=== PATIENT | female | born 1950 | race Caucasian/White ===

== ENCOUNTER 2019-12-14 17:14 | Observation (INO) ==
[2019-12-14] MEDS ORDERED: Nitroglycerin 0.4 MG TAB.SUBL SL PRN (17:34)
[2019-12-14] MEDS ORDERED: Aspirin 81 MG TAB.CHEW PO ONE (17:34)
[2019-12-14 18:41] LABS: Basophils % 0.5 %; Eosinophils # 0.2 K/mcL (0.0-0.6); Eosinophils % 2.4 %; Hematocrit 36.7 % (35.3-44.9); Hemoglobin 11.6 g/dL (11.5-15.4); Immature Granulocytes % 0.3 % (0-4); Lymphocytes # 1.3 K/mcL (0.6-4.6); Lymphocytes % 16.8 %; Mean Corpuscular HGB Conc 31.6 g/dL (31.6-35.5); Mean Corpuscular Hemoglobin 28.4 pg (28.0-33.3); Mean Corpuscular Volume 89.7 fL (83.0-100.0); Mean Platelet Volume 11.8 fL (9.4-12.4); Monocytes # 0.9 K/mcL (0.0-1.3); Monocytes % 11.8 %; Neutrophils # 5.4 K/mcL (1.6-8.9); Platelet Count 215 K/mcL (140-400); Red Blood Count 4.09 M/mcL (3.82-4.97); Red Cell Distribution Width 13.8 % (11.5-14.5); Segmented Neutrophils % 68.2 %; White Blood Count 7.9 K/mcL (4.3-11.1)
[2019-12-14 19:39] LABS: BUN/Creatinine Ratio 15 (6-26); Blood Urea Nitrogen 20 mg/dL (8-23); Calcium 9.2 mg/dL (8.6-10.3); Carbon Dioxide 17 mEq/L (23-29); Chloride 103 mEq/L (98-107); Glucose 92 mg/dL (70-105); Osmolality,Calculated 280 (280-300); Potassium 4.1 mEq/L (3.5-5.1); Sodium 134 mEq/L (136-145); Troponin I < 0.03 ng/mL (< 0.04); eGFR For African Americans 47 (> 60); eGFR For Non-African Americans 39 (> 60)
[2019-12-14] MEDS ORDERED: ALPRAZolam 0.5 MG TABLET PO ONE (19:55)
[2019-12-14] MEDS ORDERED: Mirtazapine 15 MG TABLET PO ONE (19:56)
[2019-12-14] MEDS ORDERED: *HR* HYDROcodone/Acet 5/325 mg TABLET PO ONE (19:56)
[2019-12-14] MEDS ORDERED: Metoprolol 100 MG TABLET PO ONE (19:56)
[2019-12-14] MEDS ORDERED: Naloxone 0.4 MG/ML INJ IVP PRN (22:05)
[2019-12-14] MEDS ORDERED: ALPRAZolam 0.5 MG TABLET PO PRN (23:09)
[2019-12-14] MEDS ORDERED: *HR* OxyCODONE Immed Rel 5 MG TABLET PO PRN (23:23)
[2019-12-14 23:26] LABS: Bilirubin,Urine Negative (Negative); Blood,Urine Negative (Negative); Clarity,Urine Clear (Clear); Color,Urine Colorless (Yellow); Glucose,Urine (UA) Normal (Normal); Ketones,Urine Negative (Negative); Leukocyte Esterase,Urine Negative (Negative); Nitrite,Urine Negative (Negative); Protein,Urine Negative (Neg-Trace); Specific Gravity,Urine 1.006 (1.010-1.025); Urobilinogen,Urine Normal (Normal)
[2019-12-15] MEDS: *HR* HYDROcodone/Acet 5/325 mg TABLET PO PRN ×2 (00:08→13:26)
[2019-12-15] MEDS ORDERED: *HR* Heparin 5,000 UNIT/ML VIAL SQ SCH (06:00)
[2019-12-15 06:02] LABS: Hemoglobin 11.1 g/dL (11.5-15.4); Mean Corpuscular HGB Conc 31.7 g/dL (31.6-35.5); Mean Corpuscular Hemoglobin 28.7 pg (28.0-33.3); Mean Corpuscular Volume 90.4 fL (83.0-100.0); Mean Platelet Volume 11.9 fL (9.4-12.4); Platelet Count 197 K/mcL (140-400); Red Blood Count 3.87 M/mcL (3.82-4.97); Red Cell Distribution Width 14.1 % (11.5-14.5); White Blood Count 5.7 K/mcL (4.3-11.1)
[2019-12-15 06:20] LABS: Calcium 8.8 mg/dL (8.6-10.3); Magnesium 1.7 mg/dL (1.6-2.6); Phosphorous 4.7 mg/dL (2.7-4.5); Potassium 4.2 mEq/L (3.5-5.1)
[2019-12-15] MEDS ORDERED: Regadenoson 0.4 MG/5 ML SYRINGE IVP ONE (06:37)
[2019-12-15] MEDS ORDERED: *HR* OxyCODONE Immed Rel 5 MG TABLET PO SCH (09:00)
[2019-12-15] MEDS ORDERED: Aspirin Enteric Coated 81 MG Tablet PO SCH (09:00)
[2019-12-15] MEDS ORDERED: amLODIPine 5 MG TABLET PO SCH (09:00)
[2019-12-15 12:42] VITALS: BP 144/82
[2019-12-15] MEDS ORDERED: FLU Vac QV 20-21 (6Month+)/PF 0.5 ML SYRINGE IM ONE (14:56)
== END 2019-12-15 16:15 | disposition home or self-care (01) ==
LOC: EMEROOARM 17:14 → 3BNU 17:14
PROVIDERS: ADMIT Family Medicine; ATTEND Family Medicine

== ENCOUNTER 2020-07-05 15:45 | Observation (INO) ==
[2020-07-05 18:15] LABS: Basophils % 0.4 %; Eosinophils # 0.2 K/mcL (0.0-0.6); Eosinophils % 2.3 %; Hematocrit 37.9 % (35.3-44.9); Hemoglobin 12.4 g/dL (11.5-15.4); Immature Granulocytes % 0.5 % (0-4); Lymphocytes # 1.4 K/mcL (0.6-4.6); Lymphocytes % 18.7 %; Mean Corpuscular HGB Conc 32.7 g/dL (31.6-35.5); Mean Corpuscular Hemoglobin 29.2 pg (28.0-33.3); Mean Corpuscular Volume 89.2 fL (83.0-100.0); Mean Platelet Volume 11.4 fL (9.4-12.4); Monocytes # 0.8 K/mcL (0.0-1.3); Monocytes % 10.6 %; Neutrophils # 4.9 K/mcL (1.6-8.9); Platelet Count 195 K/mcL (140-400); Red Blood Count 4.25 M/mcL (3.82-4.97); Red Cell Distribution Width 12.1 % (11.5-14.5); Segmented Neutrophils % 67.5 %; White Blood Count 7.3 K/mcL (4.3-11.1)
[2020-07-05 18:23] LABS: INR 1.1; Prothrombin Time 12.8 Seconds (9.4-12.1)
[2020-07-05 18:26] LABS: Activated Partial Thrombo Time 23.6 Seconds (26.0-36.0)
[2020-07-05 19:07] LABS: Alanine Aminotransferase 9 Units/L (7-52); Albumin 3.9 g/dL (3.5-5.7); Albumin/Globulin Ratio 1.1 (1.1-2.2); Alkaline Phosphatase 84 Units/L (34-104); Aspartate Amino Transferase 14 Units/L (13-39); BUN/Creatinine Ratio 12 (6-26); Bilirubin,Direct 0.1 mg/dL (0.0-0.2); Bilirubin,Indirect 0.3 mg/dL (0.0-1.0); Bilirubin,Total 0.4 mg/dL (0.3-1.0); Blood Urea Nitrogen 17 mg/dL (8-23); Calcium 8.9 mg/dL (8.6-10.3); Carbon Dioxide 24 mEq/L (23-29); Chloride 99 mEq/L (98-107); Creatine Kinase 33 Units/L (30-223); Ethanol < 10 mg/dL (Less than 10); Globulin 3.6 g/dL (2.4-3.5); Glucose 94 mg/dL (70-105); Osmolality,Calculated 275 (280-300); Potassium 3.7 mEq/L (3.5-5.1); Sodium 132 mEq/L (136-145); Total Protein 7.5 g/dL (6.4-8.9); Troponin I < 0.03 ng/mL (< 0.04); eGFR For African Americans 45 (> 60); eGFR For Non-African Americans 37 (> 60)
[2020-07-05 19:17] LABS: Thyroid Stimulating Hormone 0.584 mcIU/mL (0.340-5.600)
[2020-07-05 19:24] LABS: Bacteria,Urine Few per hpf (None-Few); Bilirubin,Urine Negative (Negative); Blood,Urine Negative (Negative); Calcium Oxalate Crystals,Urine Present; Clarity,Urine Turbid (Clear); Color,Urine Light-Yellow (Yellow); Glucose,Urine (UA) Normal (Normal); Ketones,Urine Negative (Negative); Leukocyte Esterase,Urine Large (Negative); Mucus,Urine Few per lpf (None-Few); Nitrite,Urine Negative (Negative); Protein,Urine Trace mg/dL (Neg-Trace); RBC,Urine 0-3 per hpf (0-3); Specific Gravity,Urine 1.013 (1.010-1.025); Squamous Epithelial Cell,Urine Moderate per hpf (None-Few); Urobilinogen,Urine Normal (Normal); WBC,Urine 30-50 per hpf (0-3)
[2020-07-05 19:48] LABS: Amphetamine Screen,Urine Negative ng/mL (Cutoff=1000); Barbiturate Screen,Urine Negative ng/mL (Cutoff=200); Benzodiazepines Screen,Urine Negative ng/mL (Cutoff=200); Cannabinoid Screen,Urine Negative ng/mL (Cutoff = 50); Cocaine Screen,Urine Negative ng/mL (Cutoff= 300); Opiate Screen,Urine Positive ng/mL (Cutoff=300); Phencyclidine Screen,Urine Negative ng/mL (Cutoff=25)
[2020-07-05] MEDS ORDERED: cefTRIAXone 1,000 MG in Water for inj. (sterile) 10 ML IVP ONE (20:09)
[2020-07-05] MEDS ORDERED: Ondansetron 4 MG/2 ML VIAL IVP PRN (21:37)
[2020-07-05] MEDS ORDERED: Naloxone 0.4 MG/ML INJ IVP PRN (21:37)
[2020-07-05] MEDS ORDERED: Melatonin 3 MG TABLET PO PRN (21:37)
[2020-07-06] MEDS: ALPRAZolam 0.5 MG TABLET PO PRN ×2 (00:43→13:22)
[2020-07-06] MEDS: Acetaminophen 325 MG TABLET PO PRN ×3 (00:45→19:47)
[2020-07-06 02:22] LABS: Basophils % 0.7 %; Eosinophils # 0.2 K/mcL (0.0-0.6); Eosinophils % 3.1 %; Hematocrit 39.8 % (35.3-44.9); Hemoglobin 12.5 g/dL (11.5-15.4); Immature Granulocytes % 0.3 % (0-4); Lymphocytes # 1.3 K/mcL (0.6-4.6); Lymphocytes % 22.3 %; Mean Corpuscular HGB Conc 31.4 g/dL (31.6-35.5); Mean Corpuscular Hemoglobin 28.9 pg (28.0-33.3); Mean Corpuscular Volume 91.9 fL (83.0-100.0); Mean Platelet Volume 11.1 fL (9.4-12.4); Monocytes # 0.8 K/mcL (0.0-1.3); Monocytes % 12.9 %; Neutrophils # 3.6 K/mcL (1.6-8.9); Platelet Count 160 K/mcL (140-400); Red Blood Count 4.33 M/mcL (3.82-4.97); Red Cell Distribution Width 12.1 % (11.5-14.5); Segmented Neutrophils % 60.7 %; White Blood Count 5.9 K/mcL (4.3-11.1)
[2020-07-06 02:40] LABS: Albumin 3.7 g/dL (3.5-5.7); Bilirubin,Total 0.4 mg/dL (0.3-1.0); Calcium 8.7 mg/dL (8.6-10.3); Globulin 3.6 g/dL (2.4-3.5); Magnesium 1.7 mg/dL (1.6-2.6); Phosphorous 3.3 mg/dL (2.7-4.5); Potassium 3.2 mEq/L (3.5-5.1); Total Protein 7.3 g/dL (6.4-8.9)
[2020-07-06] MEDS: *HR* Heparin 5,000 UNIT/ML VIAL SQ SCH ×2 (05:16→17:48)
[2020-07-06] MEDS ORDERED: cefTRIAXone 1,000 MG in Water for inj. (sterile) 10 ML IVP SCH (09:00)
[2020-07-06] MEDS: ALPRAZolam 0.25 MG TABLET PO PRN (19:47)
[2020-07-07 01:56] LABS: Basophils % 0.5 %; Eosinophils # 0.3 K/mcL (0.0-0.6); Eosinophils % 3.8 %; Hematocrit 40.7 % (35.3-44.9); Hemoglobin 13.1 g/dL (11.5-15.4); Immature Granulocytes % 0.4 % (0-4); Lymphocytes # 2.3 K/mcL (0.6-4.6); Lymphocytes % 31.1 %; Mean Corpuscular HGB Conc 32.2 g/dL (31.6-35.5); Mean Corpuscular Hemoglobin 29.6 pg (28.0-33.3); Mean Corpuscular Volume 91.9 fL (83.0-100.0); Mean Platelet Volume 11.3 fL (9.4-12.4); Monocytes % 13.4 %; Neutrophils # 3.7 K/mcL (1.6-8.9); Platelet Count 186 K/mcL (140-400); Red Blood Count 4.43 M/mcL (3.82-4.97); Red Cell Distribution Width 12.3 % (11.5-14.5); Segmented Neutrophils % 50.8 %; White Blood Count 7.3 K/mcL (4.3-11.1)
[2020-07-07 02:28] LABS: Calcium 9.1 mg/dL (8.6-10.3); Potassium 4.1 mEq/L (3.5-5.1)
[2020-07-07] MEDS: *HR* Heparin 5,000 UNIT/ML VIAL SQ SCH (05:59)
[2020-07-07] MEDS: Cefepime HCl 2,000 MG in 0.9 % Sodium Chloride Mini Bag 100 ML IVPB SCH ×2 (08:04→10:20)
[2020-07-07] MEDS: Acetaminophen 325 MG TABLET PO PRN (08:08)
[2020-07-07] MEDS ORDERED: amLODIPine 5 MG TABLET PO SCH (13:00)
[2020-07-07] MEDS: ALPRAZolam 0.25 MG TABLET PO PRN (13:40)
[2020-07-07] MEDS ORDERED: Fosfomycin Tromethamine 3 GM Packet PO ONE (13:45)
[2020-07-07] MEDS ORDERED: Metoprolol 100 MG TABLET PO SCH (15:00)
[2020-07-07 15:31] VITALS: BP 142/84
[2020-07-07] MEDS ORDERED: Mirtazapine 15 MG TABLET PO SCH (21:00)
[2020-07-07] MEDS ORDERED: Gabapentin 300 MG CAPSULE PO SCH (21:00)
[2020-07-08] MEDS ORDERED: Magnesium Oxide 400 MG TABLET PO SCH (09:00)
[2020-07-08] MEDS ORDERED: Cyanocobalamin (B-12) 1,000 MCG TABLET PO SCH (09:00)
== END 2020-07-07 16:30 | disposition home or self-care (01) ==
LOC: EMEROOARM 15:45 → 2ANU 15:45 → SUATTDRO 21:49 → 2ANU 22:32
PROVIDERS: ADMIT Internal Medicine; ATTEND Internal Medicine

== ENCOUNTER 2020-08-12 18:31 | Inpatient (IN) ==
[2020-08-12] MEDS ORDERED: Ondansetron 4 MG/2 ML VIAL IVP ONE (19:35)
[2020-08-12] MEDS ORDERED: *HR* FentaNYL (PF) 100 MCG/2 ML VIAL IVP ONE (19:36)
[2020-08-13] MEDS ORDERED: *HR* HYDROmorphone (PF) 1 MG/ML SYRINGE IVP ONE (02:03)
[2020-08-13 02:06] LABS: Basophils % 0.2 %; Eosinophils % 0.1 %; Hematocrit 36.6 % (35.3-44.9); Hemoglobin 12.3 g/dL (11.5-15.4); Immature Granulocytes % 0.5 % (0-4); Lymphocytes # 1.3 K/mcL (0.6-4.6); Lymphocytes % 8.8 %; Mean Corpuscular HGB Conc 33.6 g/dL (31.6-35.5); Mean Corpuscular Hemoglobin 29.8 pg (28.0-33.3); Mean Corpuscular Volume 88.6 fL (83.0-100.0); Mean Platelet Volume 11.2 fL (9.4-12.4); Monocytes # 1.2 K/mcL (0.0-1.3); Monocytes % 7.9 %; Neutrophils # 12.1 K/mcL (1.6-8.9); Platelet Count 221 K/mcL (140-400); Red Blood Count 4.13 M/mcL (3.82-4.97); Red Cell Distribution Width 12.4 % (11.5-14.5); Segmented Neutrophils % 82.5 %; White Blood Count 14.6 K/mcL (4.3-11.1)
[2020-08-13 02:16] LABS: INR 1.2; Prothrombin Time 13.5 Seconds (9.4-12.1)
[2020-08-13] MEDS ORDERED: Naloxone 0.4 MG/ML INJ IVP PRN ×2 (02:16→16:39)
[2020-08-13] MEDS ORDERED: Acetaminophen 325 MG TABLET PO PRN ×2 (02:16→16:39)
[2020-08-13 02:18] LABS: Activated Partial Thrombo Time 24.3 Seconds (26.0-36.0)
[2020-08-13] MEDS: tiZANidine 4 MG TABLET PO SCH ×3 (02:21→21:22)
[2020-08-13] MEDS ORDERED: Prochlorperazine 10 MG/2 ML VIAL IVP PRN ×2 (02:22→16:39)
[2020-08-13 02:28] LABS: BUN/Creatinine Ratio 12 (6-26); Blood Urea Nitrogen 14 mg/dL (8-23); Calcium 8.9 mg/dL (8.6-10.3); Carbon Dioxide 19 mEq/L (23-29); Chloride 98 mEq/L (98-107); Chol/HDL Ratio 5.1 (0-4.9); Cholesterol 175 mg/dL (< 200); Glucose 135 mg/dL (70-105); HDL Cholesterol 34 mg/dL (40-59); LDL Cholesterol,Calculated 117 mg/dL (< 100); Magnesium 1.5 mg/dL (1.6-2.6); Osmolality,Calculated 269 (280-300); Potassium 3.9 mEq/L (3.5-5.1); Sodium 128 mEq/L (136-145); Triglycerides 121 mg/dL (< 150); Troponin I < 0.03 ng/mL (< 0.04); eGFR For African Americans 53 (> 60); eGFR For Non-African Americans 44 (> 60)
[2020-08-13 02:39] LABS: Thyroid Stimulating Hormone 0.038 mcIU/mL (0.340-5.600)
[2020-08-13 02:52] LABS: Vitamin B12 > 1500 pg/mL (250-1100)
[2020-08-13] MEDS ORDERED: Magnesium Oxide 400 MG TABLET PO ONE (03:39)
[2020-08-13] MEDS ORDERED: 0.9 % Sodium Chloride 1,000 ML IVC SCH ×2 (03:45→07:53)
[2020-08-13] MEDS ORDERED: *HR* Dextrose 50 % in Water (Vial) 50 ML VIAL IVP PRN ×2 (04:17→16:39)
[2020-08-13] MEDS ORDERED: D5% in Water 1,000 ML IVC PRN ×2 (04:17→16:39)
[2020-08-13] MEDS ORDERED: Dextrose Gel 15 GM/37.5 ML TUBE PO PRN ×4 (04:17→16:39)
[2020-08-13] MEDS: Insulin LISPRO 300 UNITS/3 ML VIAL SUBQ SCH ×3 (07:27→18:33)
[2020-08-13] MEDS ORDERED: *HR* FentaNYL (PF) 100 MCG/2 ML VIAL IVP PRN ×2 (08:35→16:39)
[2020-08-13] MEDS ORDERED: *HR* HYDROcodone/Acet 5/325 mg TABLET PO PRN (08:55)
[2020-08-13] MEDS ORDERED: Aspirin Enteric Coated 81 MG Tablet PO SCH (09:00)
[2020-08-13 09:14] LABS: Estimated Average Glucose 120 mg/dl; Hemoglobin A1C 5.8 %
[2020-08-13 09:18] LABS: Calcium 8.6 mg/dL (8.6-10.3); Potassium 4.2 mEq/L (3.5-5.1)
[2020-08-13] MEDS ORDERED: ceFAZolin 2,000 MG in Water for inj. (sterile) 20 ML IVP ONE (09:53)
[2020-08-13 10:01] LABS: Hematocrit 33.1 % (35.3-44.9); Mean Corpuscular HGB Conc 32.3 g/dL (31.6-35.5); Mean Corpuscular Hemoglobin 29.2 pg (28.0-33.3); Mean Corpuscular Volume 90.2 fL (83.0-100.0); Mean Platelet Volume 11.9 fL (9.4-12.4); Platelet Count 186 K/mcL (140-400); Red Blood Count 3.67 M/mcL (3.82-4.97); Red Cell Distribution Width 12.5 % (11.5-14.5); White Blood Count 10.7 K/mcL (4.3-11.1)
[2020-08-13 10:02] LABS: Hemoglobin 10.7 g/dL (11.5-15.4)
[2020-08-13] MEDS ORDERED: Lidocaine -MPF 2% 2 ML VIAL ONE (12:30)
[2020-08-13] MEDS ORDERED: Lidocaine -MPF 4% 5 ML AMPUL ONE (12:30)
[2020-08-13] MEDS ORDERED: *HR* Rocuronium Bromide 50 MG/5 ML VIAL ONE (12:30)
[2020-08-13] MEDS ORDERED: *HR* Propofol 200 MG/20 ML VIAL IVP ONE (12:30)
[2020-08-13] MEDS ORDERED: *HR* FentaNYL (PF) 100 MCG/2 ML VIAL ONE (12:30)
[2020-08-13] MEDS ORDERED: Ondansetron 4 MG/2 ML VIAL ONE (12:30)
[2020-08-13] MEDS ORDERED: *HR* Succinylcholine 200 MG/10 ML VIAL IVP ONE (12:30)
[2020-08-13] MEDS ORDERED: Albumin Human 5% 0 GM/0 ML IV.SOLN ONE (12:50)
[2020-08-13] MEDS ORDERED: EPHEDrine 50 MG/ML VIAL ONE (13:01)
[2020-08-13] MEDS ORDERED: Scopolamine Patch 1.5 MG PATCH.TD72 TD ONE ×2 (13:14→16:39)
[2020-08-13] MEDS ORDERED: *HR* HYDROMORPHONE 2 MG/ML VIAL ONE (14:06)
[2020-08-13] MEDS: *HR* HYDROmorphone PF 0.5 MG/0.5 ML SYRINGE IVP PRN ×2 (14:25→14:30)
[2020-08-13] MEDS: *HR* HYDROcodone/Acet 5/325 mg TABLET PO PRN ×2 (17:10→23:48)
[2020-08-13] MEDS: 0.9 % Sodium Chloride 1,000 ML IVC SCH (18:15)
[2020-08-13] MEDS: Clindamycin 900 MG/50 ML 900 MG/50 ML IV.SOLN IVPB SCH (18:24)
[2020-08-13] MEDS: CeFAZolin 2 GM/120 ML BAG IVPB SCH (21:22)
[2020-08-14] MEDS: Insulin LISPRO 300 UNITS/3 ML VIAL SUBQ SCH ×4 (02:20→17:19)
[2020-08-14] MEDS: Clindamycin 900 MG/50 ML 900 MG/50 ML IV.SOLN IVPB SCH (02:22)
[2020-08-14 05:22] LABS: Bilirubin,Urine Negative (Negative); Blood,Urine Trace (Negative); Clarity,Urine Turbid (Clear); Color,Urine Yellow (Yellow); Glucose,Urine (UA) Normal (Normal); Hyaline Casts,Urine Few per lpf (None Seen); Ketones,Urine Trace mg/dL (Negative); Leukocyte Esterase,Urine Large (Negative); Mucus,Urine Few per lpf (None-Few); Nitrite,Urine Negative (Negative); Protein,Urine 50 mg/dL (Neg-Trace); RBC,Urine 15-30 per hpf (0-3); Specific Gravity,Urine 1.029 (1.010-1.025); Squamous Epithelial Cell,Urine Few per hpf (None-Few); Transitional Epi Cells,Urine Few per hpf (None-Few); Urobilinogen,Urine Normal (Normal); WBC,Urine TNTC per hpf (0-3)
[2020-08-14] MEDS: *HR* HYDROcodone/Acet 5/325 mg TABLET PO PRN ×3 (06:37→18:28)
[2020-08-14] MEDS: 0.9 % Sodium Chloride 1,000 ML IVC SCH (06:38)
[2020-08-14 07:07] LABS: Mean Corpuscular Volume 90.3 fL (83.0-100.0); Red Cell Distribution Width 12.7 % (11.5-14.5)
[2020-08-14 07:09] LABS: Hematocrit 23.2 % (35.3-44.9); Hemoglobin 7.6 g/dL (11.5-15.4); Immature Platelets 6.6 % (1.1-6.1); Mean Corpuscular HGB Conc 32.8 g/dL (31.6-35.5); Mean Corpuscular Hemoglobin 29.6 pg (28.0-33.3); Mean Platelet Volume 11.8 fL (9.4-12.4); Red Blood Count 2.57 M/mcL (3.82-4.97); White Blood Count 8.6 K/mcL (4.3-11.1)
[2020-08-14 07:23] LABS: Calcium 7.8 mg/dL (8.6-10.3); Potassium 3.9 mEq/L (3.5-5.1)
[2020-08-14] MEDS: tiZANidine 4 MG TABLET PO SCH ×3 (08:12→21:12)
[2020-08-14] MEDS: Cholecalciferol (D-3) 1,000 UNIT (25MCG) TABLET PO SCH (08:13)
[2020-08-14] MEDS: Aspirin Enteric Coated 325 MG Tablet PO SCH (08:13)
[2020-08-14] MEDS ORDERED: 0.9 % Sodium Chloride 250 ML IVC SCH (16:00)
[2020-08-14] MEDS ORDERED: *HR* Metoprolol 5 MG/5 ML VIAL IVP ONE (17:09)
[2020-08-15] MEDS: Insulin LISPRO 300 UNITS/3 ML VIAL SUBQ SCH ×4 (00:58→18:50)
[2020-08-15 01:31] LABS: Hematocrit 25.9 % (35.3-44.9); Hemoglobin 8.5 g/dL (11.5-15.4); Mean Corpuscular HGB Conc 32.8 g/dL (31.6-35.5); Mean Corpuscular Hemoglobin 29.8 pg (28.0-33.3); Mean Corpuscular Volume 90.9 fL (83.0-100.0); Mean Platelet Volume 11.7 fL (9.4-12.4); Platelet Count 115 K/mcL (140-400); Red Blood Count 2.85 M/mcL (3.82-4.97); Red Cell Distribution Width 13.1 % (11.5-14.5); White Blood Count 8.9 K/mcL (4.3-11.1)
[2020-08-15 01:51] LABS: Calcium 8.1 mg/dL (8.6-10.3); Potassium 4.1 mEq/L (3.5-5.1)
[2020-08-15] MEDS: *HR* HYDROcodone/Acet 5/325 mg TABLET PO PRN ×3 (03:19→14:24)
[2020-08-15] MEDS: Aspirin Enteric Coated 325 MG Tablet PO SCH (07:59)
[2020-08-15] MEDS: tiZANidine 4 MG TABLET PO SCH ×3 (07:59→20:22)
[2020-08-15] MEDS: Cholecalciferol (D-3) 1,000 UNIT (25MCG) TABLET PO SCH (07:59)
[2020-08-15] MEDS ORDERED: Magnesium Oxide 400 MG TABLET PO ONE (09:11)
[2020-08-15] MEDS: cefTRIAXone 1,000 MG in Water for inj. (sterile) 10 ML IVP SCH (15:46)
[2020-08-16] MEDS: Insulin LISPRO 300 UNITS/3 ML VIAL SUBQ SCH ×4 (02:45→18:05)
[2020-08-16] MEDS: *HR* HYDROcodone/Acet 5/325 mg TABLET PO PRN ×4 (02:47→23:09)
[2020-08-16 04:25] LABS: Basophils % 0.2 %; Eosinophils # 0.2 K/mcL (0.0-0.6); Eosinophils % 1.8 %; Hematocrit 24.7 % (35.3-44.9); Hemoglobin 8.2 g/dL (11.5-15.4); Immature Granulocytes % 0.6 % (0-4); Lymphocytes # 0.9 K/mcL (0.6-4.6); Lymphocytes % 10.1 %; Mean Corpuscular HGB Conc 33.2 g/dL (31.6-35.5); Mean Corpuscular Volume 90.5 fL (83.0-100.0); Mean Platelet Volume 11.8 fL (9.4-12.4); Monocytes # 0.8 K/mcL (0.0-1.3); Monocytes % 8.8 %; Neutrophils # 7.3 K/mcL (1.6-8.9); Platelet Count 117 K/mcL (140-400); Red Blood Count 2.73 M/mcL (3.82-4.97); Red Cell Distribution Width 13.2 % (11.5-14.5); Segmented Neutrophils % 78.5 %; White Blood Count 9.3 K/mcL (4.3-11.1)
[2020-08-16 04:51] LABS: BUN/Creatinine Ratio 17 (6-26); Blood Urea Nitrogen 17 mg/dL (8-23); Calcium 8.3 mg/dL (8.6-10.3); Carbon Dioxide 20 mEq/L (23-29); Chloride 101 mEq/L (98-107); Glucose 114 mg/dL (70-105); Magnesium 1.5 mg/dL (1.6-2.6); Osmolality,Calculated 272 (280-300); Potassium 4.4 mEq/L (3.5-5.1); Sodium 130 mEq/L (136-145); eGFR For African Americans > 60 (> 60); eGFR For Non-African Americans 54 (> 60)
[2020-08-16] MEDS: CeFAZolin 2 GM/120 ML BAG IVPB SCH (07:40)
[2020-08-16] MEDS: tiZANidine 4 MG TABLET PO SCH ×4 (07:41→20:14)
[2020-08-16] MEDS: 0.9 % Sodium Chloride 1,000 ML IVC SCH ×3 (07:42→15:24)
[2020-08-16] MEDS: Cholecalciferol (D-3) 1,000 UNIT (25MCG) TABLET PO SCH (08:49)
[2020-08-16] MEDS: Aspirin Enteric Coated 325 MG Tablet PO SCH (08:50)
[2020-08-16] MEDS: Magnesium Oxide 400 MG TABLET PO SCH (09:59)
[2020-08-16] MEDS: cefTRIAXone 1,000 MG in Water for inj. (sterile) 10 ML IVP SCH (14:16)
[2020-08-16] MEDS ORDERED: Nitroglycerin 0.4 MG TAB.SUBL SL PRN (17:13)
[2020-08-16] MEDS: Mirtazapine 15 MG TABLET PO SCH (20:14)
[2020-08-17] MEDS: ALPRAZolam 0.25 MG TABLET PO PRN ×2 (00:12→21:46)
[2020-08-17] MEDS: Insulin LISPRO 300 UNITS/3 ML VIAL SUBQ SCH ×3 (00:13→12:24)
[2020-08-17 04:30] LABS: Basophils % 0.2 %; Eosinophils # 0.3 K/mcL (0.0-0.6); Eosinophils % 3.6 %; Hematocrit 26.9 % (35.3-44.9); Immature Granulocytes % 0.7 % (0-4); Lymphocytes # 1.6 K/mcL (0.6-4.6); Lymphocytes % 18.8 %; Mean Corpuscular HGB Conc 33.5 g/dL (31.6-35.5); Mean Corpuscular Hemoglobin 30.5 pg (28.0-33.3); Mean Corpuscular Volume 91.2 fL (83.0-100.0); Mean Platelet Volume 11.9 fL (9.4-12.4); Monocytes # 0.9 K/mcL (0.0-1.3); Monocytes % 10.2 %; Neutrophils # 5.6 K/mcL (1.6-8.9); Platelet Count 151 K/mcL (140-400); Red Blood Count 2.95 M/mcL (3.82-4.97); Red Cell Distribution Width 13.3 % (11.5-14.5); Segmented Neutrophils % 66.5 %; White Blood Count 8.4 K/mcL (4.3-11.1)
[2020-08-17 04:49] LABS: Calcium 8.8 mg/dL (8.6-10.3); Magnesium 1.9 mg/dL (1.6-2.6)
[2020-08-17] MEDS: *HR* HYDROcodone/Acet 5/325 mg TABLET PO PRN (07:29)
[2020-08-17] MEDS: Magnesium Oxide 400 MG TABLET PO SCH (08:40)
[2020-08-17] MEDS: Cyanocobalamin (B-12) 1,000 MCG TABLET PO SCH (08:40)
[2020-08-17] MEDS: tiZANidine 4 MG TABLET PO SCH ×3 (08:41→20:02)
[2020-08-17] MEDS: Aspirin Enteric Coated 325 MG Tablet PO SCH (08:41)
[2020-08-17] MEDS: Cholecalciferol (D-3) 1,000 UNIT (25MCG) TABLET PO SCH (08:42)
[2020-08-17] MEDS: *HR* OxyCODONE/APAP 5/325 TABLET PO PRN ×4 (10:15→23:05)
[2020-08-17] MEDS: Cefuroxime PO 250 MG TABLET PO SCH ×2 (10:16→20:02)
[2020-08-17] MEDS: Mirtazapine 15 MG TABLET PO SCH (20:02)
[2020-08-18] MEDS: *HR* OxyCODONE/APAP 5/325 TABLET PO PRN ×3 (04:21→14:10)
[2020-08-18] MEDS: 0.9 % Sodium Chloride 1,000 ML IVC SCH ×2 (07:43→07:44)
[2020-08-18] MEDS: Cyanocobalamin (B-12) 1,000 MCG TABLET PO SCH (08:45)
[2020-08-18] MEDS: Aspirin Enteric Coated 325 MG Tablet PO SCH (08:46)
[2020-08-18] MEDS: Magnesium Oxide 400 MG TABLET PO SCH (08:46)
[2020-08-18] MEDS: tiZANidine 4 MG TABLET PO SCH ×2 (08:46→14:10)
[2020-08-18] MEDS: Cefuroxime PO 250 MG TABLET PO SCH (08:46)
[2020-08-18] MEDS: Cholecalciferol (D-3) 1,000 UNIT (25MCG) TABLET PO SCH (08:47)
[2020-08-18 11:03] LABS: Influenza A PCR Negative (Negative); Influenza B PCR Negative (Negative); Resp. Syncytial Virus PCR Negative (Negative); SARS-CoV-2 by PCR (In House) Negative (Negative)
[2020-08-18] MEDS ORDERED: 0.9 % Sodium Chloride 250 ML IVC ONE (11:36)
[2020-08-18 12:46] LABS: Basophils % 0.4 %; Eosinophils # 0.4 K/mcL (0.0-0.6); Eosinophils % 3.9 %; Immature Granulocytes % 1.3 % (0-4); Lymphocytes # 1.1 K/mcL (0.6-4.6); Lymphocytes % 12.2 %; Mean Corpuscular Hemoglobin 29.6 pg (28.0-33.3); Mean Corpuscular Volume 92.6 fL (83.0-100.0); Mean Platelet Volume 11.3 fL (9.4-12.4); Monocytes # 1.1 K/mcL (0.0-1.3); Monocytes % 11.6 %; Neutrophils # 6.4 K/mcL (1.6-8.9); Platelet Count 182 K/mcL (140-400); Red Cell Distribution Width 13.6 % (11.5-14.5); Segmented Neutrophils % 70.6 %
[2020-08-18 12:52] VITALS: BP 150/89
[2020-08-21] MEDS ORDERED: Ergocalciferol (VIT D2) 50,000 UNIT (1.25MG) CAP PO SCH (17:00)
== END 2020-08-18 14:49 | disposition other institution (70) | DRG 481 ==
LOC: EMEROOARM 18:31 → 3NENU 18:31 → SUATTDRO 23:33 → 3NENU 08-13 01:31 → SUATTDRO 08-13 10:46
PROVIDERS: ADMIT Internal Medicine; ATTEND Internal Medicine

== ENCOUNTER 2020-10-21 19:00 | Inpatient (IN) ==
[2020-10-21] MEDS ORDERED: Ondansetron 4 MG/2 ML VIAL IVP ONE (19:59)
[2020-10-21] MEDS ORDERED: *HR* HYDROmorphone (PF) 1 MG/ML SYRINGE IVP ONE ×2 (19:59→22:43)
[2020-10-21 20:28] LABS: Bacteria,Urine Few per hpf (None-Few); Bilirubin,Urine Negative (Negative); Blood,Urine Negative (Negative); Clarity,Urine Turbid (Clear); Color,Urine Yellow (Yellow); Glucose,Urine (UA) Normal (Normal); Ketones,Urine Negative (Negative); Leukocyte Esterase,Urine Large (Negative); Mucus,Urine Few per lpf (None-Few); Nitrite,Urine Negative (Negative); Protein,Urine 30 mg/dL (Neg-Trace); RBC,Urine 0-3 per hpf (0-3); Squamous Epithelial Cell,Urine Few per hpf (None-Few); Urobilinogen,Urine Normal (Normal); WBC,Urine TNTC per hpf (0-3)
[2020-10-21 23:02] LABS: Basophils % 0.3 %; Eosinophils # 0.2 K/mcL (0.0-0.6); Eosinophils % 1.3 %; Hematocrit 33.1 % (35.3-44.9); Hemoglobin 10.5 g/dL (11.5-15.4); Immature Granulocytes % 0.6 % (0-4); Lymphocytes # 0.9 K/mcL (0.6-4.6); Lymphocytes % 6.9 %; Mean Corpuscular HGB Conc 31.7 g/dL (31.6-35.5); Mean Corpuscular Hemoglobin 29.1 pg (28.0-33.3); Mean Corpuscular Volume 91.7 fL (83.0-100.0); Mean Platelet Volume 11.1 fL (9.4-12.4); Monocytes % 7.2 %; Neutrophils # 11.1 K/mcL (1.6-8.9); Platelet Count 222 K/mcL (140-400); Red Blood Count 3.61 M/mcL (3.82-4.97); Red Cell Distribution Width 13.8 % (11.5-14.5); Segmented Neutrophils % 83.7 %; White Blood Count 13.3 K/mcL (4.3-11.1)
[2020-10-21 23:09] LABS: INR 1.2; Prothrombin Time 13.9 Seconds (9.4-12.1)
[2020-10-21 23:12] LABS: Activated Partial Thrombo Time 23.1 Seconds (26.0-36.0)
[2020-10-21 23:25] LABS: Albumin 3.5 g/dL (3.5-5.7); Bilirubin,Total 0.3 mg/dL (0.3-1.0); Calcium 8.7 mg/dL (8.6-10.3); Globulin 3.6 g/dL (2.4-3.5); Potassium 4.7 mEq/L (3.5-5.1); Total Protein 7.1 g/dL (6.4-8.9)
[2020-10-21] MEDS ORDERED: 0.9 % Sodium Chloride 1,000 ML IVC SCH (23:45)
[2020-10-21] MEDS ORDERED: Naloxone 0.4 MG/ML INJ IVP PRN (23:51)
[2020-10-22] MEDS: Acetaminophen 325 MG TABLET PO PRN (06:04)
[2020-10-22 10:14] LABS: Hematocrit 33.2 % (35.3-44.9); Hemoglobin 10.8 g/dL (11.5-15.4); Mean Corpuscular HGB Conc 32.5 g/dL (31.6-35.5); Mean Corpuscular Hemoglobin 30.1 pg (28.0-33.3); Mean Corpuscular Volume 92.5 fL (83.0-100.0); Mean Platelet Volume 11.3 fL (9.4-12.4); Platelet Count 232 K/mcL (140-400); Red Blood Count 3.59 M/mcL (3.82-4.97); Red Cell Distribution Width 13.7 % (11.5-14.5); White Blood Count 11.9 K/mcL (4.3-11.1)
[2020-10-22 10:36] LABS: Calcium 8.5 mg/dL (8.6-10.3); Potassium 4.3 mEq/L (3.5-5.1)
[2020-10-22] MEDS: Piperacillin/Tazobactam 3.375 GM in 0.9 % Sodium Chloride Mini Bag 100 ML IVPB SCH ×2 (11:20→17:02)
[2020-10-22 11:21] LABS: ABG Base Excess -7 mEq/L (-2 to 3); ABG HCO3 20 mEq/L (21-27); ABG Oxygen Saturation 86 % (95-98); ABG PCO2 45 mmHg (35-45); ABG PH 7.27 pH Units (7.32-7.45); ABG PO2 59 mmHg (85-104); ABG TCO2 22 mEq/L (20-26)
[2020-10-22 13:08] LABS: Adenovirus Not Detected (Not Detect); Bordetella Pertussis Not Detected (Not Detect); Chlamydophila pneumoniae Not Detected (Not Detect); Coronavirus 229E Not Detected (Not Detect); Coronavirus HKU1 Not Detected (Not Detect); Coronavirus NL63 Not Detected (Not Detect); Coronavirus OC43 Not Detected (Not Detect); Human Metapneumovirus Not Detected (Not Detect); Human Rhinovirus/Enterovirus Not Detected (Not Detect); Influenza A Subtype 2009 H1 Not Detected (Not Detect); Influenza B Not Detected (Not Detect); Mycoplasma pneumoniae Not Detected (Not Detect); Parainfluenza Virus 1 Not Detected (Not Detect); Parainfluenza Virus 2 Not Detected (Not Detect); Parainfluenza Virus 3 Not Detected (Not Detect); Parainfluenza Virus 4 Not Detected (Not Detect); Respiratory Syncytial Virus Not Detected (Not Detect); SARS-CoV-2 Not Detected (Not Detect)
[2020-10-22] MEDS ORDERED: 0.9 % Sodium Chloride 500 ML IVC ONE (15:42)
[2020-10-22] MEDS: Gabapentin 300 MG CAPSULE PO SCH (21:49)
[2020-10-22] MEDS: Mirtazapine 15 MG TABLET PO SCH (21:49)
[2020-10-23 01:14] LABS: Hematocrit 31.8 % (35.3-44.9); Hemoglobin 9.6 g/dL (11.5-15.4); Mean Corpuscular HGB Conc 30.2 g/dL (31.6-35.5); Mean Corpuscular Hemoglobin 29.3 pg (28.0-33.3); Mean Platelet Volume 11.4 fL (9.4-12.4); Platelet Count 170 K/mcL (140-400); Red Blood Count 3.28 M/mcL (3.82-4.97); Red Cell Distribution Width 13.9 % (11.5-14.5); White Blood Count 11.7 K/mcL (4.3-11.1)
[2020-10-23 01:32] LABS: Calcium 8.4 mg/dL (8.6-10.3)
[2020-10-23] MEDS: Piperacillin/Tazobactam 3.375 GM in 0.9 % Sodium Chloride Mini Bag 100 ML IVPB SCH ×3 (02:21→18:45)
[2020-10-23] MEDS: Magnesium Oxide 400 MG TABLET PO SCH (07:16)
[2020-10-23] MEDS: Cyanocobalamin (B-12) 1,000 MCG TABLET PO SCH (07:16)
[2020-10-23] MEDS: ALPRAZolam 0.25 MG TABLET PO PRN ×2 (15:19→17:32)
[2020-10-23] MEDS: Ergocalciferol (VIT D2) 50,000 UNIT (1.25MG) CAP PO SCH (16:02)
[2020-10-23] MEDS ORDERED: Metoprolol 100 MG TABLET PO SCH (17:49)
[2020-10-23] MEDS: Ondansetron 4 MG/2 ML VIAL IVP PRN (17:55)
[2020-10-23] MEDS: Metoprolol 100 MG TABLET PO SCH ×2 (18:01→23:49)
[2020-10-23] MEDS: Mirtazapine 15 MG TABLET PO SCH (21:40)
[2020-10-23] MEDS: Gabapentin 300 MG CAPSULE PO SCH (21:40)
[2020-10-23] MEDS: Acetaminophen 325 MG TABLET PO PRN (23:49)
[2020-10-24] MEDS: Piperacillin/Tazobactam 3.375 GM in 0.9 % Sodium Chloride Mini Bag 100 ML IVPB SCH ×4 (03:00→21:54)
[2020-10-24 05:02] LABS: Bilirubin,Urine Negative (Negative); Blood,Urine Negative (Negative); Clarity,Urine Clear (Clear); Color,Urine Yellow (Yellow); Glucose,Urine (UA) Normal (Normal); Ketones,Urine Negative (Negative); Leukocyte Esterase,Urine Small (Negative); Mucus,Urine Few per lpf (None-Few); Nitrite,Urine Negative (Negative); PH,Urine 5.5 pH Units (5.0-8.0); Protein,Urine 30 mg/dL (Neg-Trace); RBC,Urine 0-3 per hpf (0-3); Specific Gravity,Urine 1.028 (1.010-1.025); Squamous Epithelial Cell,Urine Few per hpf (None-Few); Urobilinogen,Urine Normal (Normal); WBC,Urine 15-30 per hpf (0-3)
[2020-10-24 05:59] LABS: Hematocrit 32.1 % (35.3-44.9); Hemoglobin 9.7 g/dL (11.5-15.4); Mean Corpuscular HGB Conc 30.2 g/dL (31.6-35.5); Mean Corpuscular Hemoglobin 29.2 pg (28.0-33.3); Mean Corpuscular Volume 96.7 fL (83.0-100.0); Mean Platelet Volume 11.9 fL (9.4-12.4); Platelet Count 173 K/mcL (140-400); Red Blood Count 3.32 M/mcL (3.82-4.97); Red Cell Distribution Width 13.8 % (11.5-14.5); White Blood Count 9.6 K/mcL (4.3-11.1)
[2020-10-24 06:21] LABS: Potassium 4.6 mEq/L (3.5-5.1)
[2020-10-24] MEDS: Metoprolol 100 MG TABLET PO SCH ×3 (09:07→21:53)
[2020-10-24] MEDS: Cyanocobalamin (B-12) 1,000 MCG TABLET PO SCH (09:08)
[2020-10-24] MEDS: Magnesium Oxide 400 MG TABLET PO SCH (09:08)
[2020-10-24] MEDS: Ondansetron 4 MG/2 ML VIAL IVP PRN (09:33)
[2020-10-24] MEDS: Acetaminophen 325 MG TABLET PO PRN (10:45)
[2020-10-24 16:37] LABS: Appearance,Synovial Fluid Bloody (Clear-Hazy); Color,Synovial Fluid Red (Straw)
[2020-10-24] MEDS: Mirtazapine 15 MG TABLET PO SCH (21:54)
[2020-10-24] MEDS: Gabapentin 300 MG CAPSULE PO SCH (21:54)
[2020-10-25 05:39] LABS: Hematocrit 32.4 % (35.3-44.9); Hemoglobin 10.3 g/dL (11.5-15.4); Mean Corpuscular HGB Conc 31.8 g/dL (31.6-35.5); Mean Corpuscular Hemoglobin 29.8 pg (28.0-33.3); Mean Corpuscular Volume 93.6 fL (83.0-100.0); Mean Platelet Volume 12.2 fL (9.4-12.4); Platelet Count 181 K/mcL (140-400); Red Blood Count 3.46 M/mcL (3.82-4.97); Red Cell Distribution Width 13.5 % (11.5-14.5); White Blood Count 8.9 K/mcL (4.3-11.1)
[2020-10-25 05:50] LABS: Calcium 8.8 mg/dL (8.6-10.3); Potassium 4.7 mEq/L (3.5-5.1)
[2020-10-25] MEDS: Piperacillin/Tazobactam 3.375 GM in 0.9 % Sodium Chloride Mini Bag 100 ML IVPB SCH ×3 (05:51→21:14)
[2020-10-25] MEDS: Cyanocobalamin (B-12) 1,000 MCG TABLET PO SCH (09:29)
[2020-10-25] MEDS: Magnesium Oxide 400 MG TABLET PO SCH (09:30)
[2020-10-25] MEDS: Metoprolol 100 MG TABLET PO SCH ×3 (09:30→21:12)
[2020-10-25] MEDS: Mirtazapine 15 MG TABLET PO SCH (21:11)
[2020-10-25] MEDS: Gabapentin 300 MG CAPSULE PO SCH (21:11)
[2020-10-25] MEDS: ALPRAZolam 0.25 MG TABLET PO PRN (21:24)
[2020-10-26] MEDS: Piperacillin/Tazobactam 3.375 GM in 0.9 % Sodium Chloride Mini Bag 100 ML IVPB SCH ×4 (06:18→21:38)
[2020-10-26 06:50] LABS: Hematocrit 28.7 % (35.3-44.9); Hemoglobin 8.9 g/dL (11.5-15.4); Mean Corpuscular Hemoglobin 29.3 pg (28.0-33.3); Mean Corpuscular Volume 94.4 fL (83.0-100.0); Mean Platelet Volume 11.9 fL (9.4-12.4); Platelet Count 168 K/mcL (140-400); Red Blood Count 3.04 M/mcL (3.82-4.97); Red Cell Distribution Width 13.4 % (11.5-14.5); White Blood Count 7.3 K/mcL (4.3-11.1)
[2020-10-26 07:12] LABS: Calcium 8.6 mg/dL (8.6-10.3); Potassium 4.5 mEq/L (3.5-5.1)
[2020-10-26] MEDS: Chlorhexidine Rinse 15 ML MOUTHWASH MM SCH ×2 (08:49→20:01)
[2020-10-26] MEDS: Metoprolol 100 MG TABLET PO SCH ×3 (08:49→20:00)
[2020-10-26] MEDS: Magnesium Oxide 400 MG TABLET PO SCH (08:49)
[2020-10-26] MEDS: Cyanocobalamin (B-12) 1,000 MCG TABLET PO SCH (08:49)
[2020-10-26] MEDS ORDERED: *HR* FentaNYL (PF) 100 MCG/2 ML VIAL ONE (09:37)
[2020-10-26] MEDS ORDERED: *HR* Succinylcholine 200 MG/10 ML VIAL IVP ONE (09:37)
[2020-10-26] MEDS ORDERED: Ondansetron 4 MG/2 ML VIAL ONE (09:37)
[2020-10-26] MEDS ORDERED: Lidocaine -MPF 2% 2 ML VIAL ONE (09:37)
[2020-10-26] MEDS ORDERED: *HR* Propofol 200 MG/20 ML VIAL IVP ONE (09:37)
[2020-10-26] MEDS ORDERED: Tranexamic Acid 1,000 MG/10 ML VIAL ONE (09:40)
[2020-10-26] MEDS ORDERED: Lidocaine HCL 4 ML Topical Solution (Laryng-O-Jet Kit Sterile Pak) TP ONE (09:40)
[2020-10-26] MEDS ORDERED: Povidone-Iodine 45 ML, Sodium Chloride IRRigation 1,000 ML IR ONE (11:00)
[2020-10-26] MEDS ORDERED: TOTAL JOINT MIXTURE (100ML) INTRAART ONE (11:10)
[2020-10-26] MEDS ORDERED: Albumin Human 5% 12.5 GM/250 ML IV.SOLN ONE (11:22)
[2020-10-26] MEDS ORDERED: *HR* Vasopressin 20 UNIT/ML VIAL ONE (12:21)
[2020-10-26] MEDS ORDERED: *HR* HYDROmorphone PF 0.5 MG/0.5 ML SYRINGE IVP PRN (12:29)
[2020-10-26] MEDS ORDERED: *HR* OxyCODONE Immed Rel 5 MG TABLET PO PRN (12:29)
[2020-10-26] MEDS ORDERED: Tobramycin Sulf (Sterile) 1.2 GM VIAL ONE (12:32)
[2020-10-26] MEDS ORDERED: Vancomycin 1,000 MG VIAL ONE (12:32)
[2020-10-26] MEDS ORDERED: Ethanol\\Acetic Acid\\Na Ace\\Ben 1,000 ML IRRIG.SOLN IR ONE (12:32)
[2020-10-26] MEDS ORDERED: CeFAZolin Syr 2,000MG/20 ML 2,000 MG/20 ML SYRINGE IVPB ONE (13:45)
[2020-10-26] MEDS ORDERED: ceFAZolin 2,000 MG in Water for inj. (sterile) 20 ML IVP ONE (13:45)
[2020-10-26] MEDS ORDERED: Gentamicin 80 MG in 0.9 % Sodium Chloride 100 ML IVPB ONE (14:00)
[2020-10-26] MEDS: Mirtazapine 15 MG TABLET PO SCH (20:00)
[2020-10-26] MEDS: Gabapentin 300 MG CAPSULE PO SCH (20:01)
[2020-10-26] MEDS ORDERED: Ketorolac 30 MG/ML VIAL IVP ONE (20:19)
[2020-10-26] MEDS ORDERED: Sennosides 8.6 MG TABLET PO PRN (20:28)
[2020-10-26] MEDS ORDERED: Ringers Solution, Lactated 1,000 ML IVC SCH (20:30)
[2020-10-26] MEDS: CeFAZolin 2 GM/120 ML BAG IVPB SCH (21:27)
[2020-10-27 05:30] LABS: Basophils % 0.3 %; Hematocrit 23.8 % (35.3-44.9); Hemoglobin 7.8 g/dL (11.5-15.4); Immature Granulocytes % 1.4 % (0-4); Lymphocytes # 0.6 K/mcL (0.6-4.6); Lymphocytes % 5.1 %; Mean Corpuscular HGB Conc 32.8 g/dL (31.6-35.5); Mean Corpuscular Hemoglobin 29.1 pg (28.0-33.3); Mean Corpuscular Volume 88.8 fL (83.0-100.0); Monocytes # 0.7 K/mcL (0.0-1.3); Neutrophils # 10.4 K/mcL (1.6-8.9); Platelet Count 137 K/mcL (140-400); Red Blood Count 2.68 M/mcL (3.82-4.97); Red Cell Distribution Width 16.2 % (11.5-14.5); Segmented Neutrophils % 87.2 %
[2020-10-27 05:31] LABS: White Blood Count 11.9 K/mcL (4.3-11.1)
[2020-10-27] MEDS: CeFAZolin 2 GM/120 ML BAG IVPB SCH (05:40)
[2020-10-27 06:07] LABS: Folate 8.1 ng/mL (3.0-16.0); Vitamin B12 > 1500 pg/mL (250-1100)
[2020-10-27] MEDS: Piperacillin/Tazobactam 3.375 GM in 0.9 % Sodium Chloride Mini Bag 100 ML IVPB SCH ×2 (06:07→14:59)
[2020-10-27 06:51] LABS: Magnesium 1.6 mg/dL (1.6-2.6); Phosphorous 3.8 mg/dL (2.7-4.5); Potassium 5.2 mEq/L (3.5-5.1)
[2020-10-27] MEDS ORDERED: Iron Sucrose Complex 400 MG in 0.9 % Sodium Chloride 250 ML IVPB ONE (07:49)
[2020-10-27] MEDS: Cyanocobalamin (B-12) 1,000 MCG TABLET PO SCH (09:33)
[2020-10-27] MEDS: Magnesium Oxide 400 MG TABLET PO SCH (09:33)
[2020-10-27] MEDS: Metoprolol 100 MG TABLET PO SCH ×3 (09:33→20:45)
[2020-10-27] MEDS: Multivit/Ca/Min/Fe/FA 1 TAB TABLET PO SCH (09:33)
[2020-10-27] MEDS: Ascorbic Acid 500 MG TABLET PO SCH ×2 (09:34→16:39)
[2020-10-27] MEDS: Chlorhexidine Rinse 15 ML MOUTHWASH MM SCH ×2 (09:34→20:45)
[2020-10-27 11:13] LABS: Hematocrit 24.1 % (35.3-44.9)
[2020-10-27] MEDS ORDERED: *HR* Rivaroxaban 10 MG TABLET PO SCH (17:00)
[2020-10-27] MEDS: Ondansetron 4 MG/2 ML VIAL IVP PRN (17:59)
[2020-10-27] MEDS: Lactobacillus 1 EACH CAP.SPRINK PO SCH (20:45)
[2020-10-27] MEDS: Gabapentin 300 MG CAPSULE PO SCH (20:45)
[2020-10-27] MEDS: Mirtazapine 15 MG TABLET PO SCH (20:45)
[2020-10-28] MEDS: ALPRAZolam 0.25 MG TABLET PO PRN (01:48)
[2020-10-28] MEDS: *HR* Promethazine 25 MG/ML VIAL IM PRN ×2 (01:48→18:30)
[2020-10-28 06:01] LABS: Basophils % 0.2 %; Eosinophils # 0.5 K/mcL (0.0-0.6); Eosinophils % 3.9 %; Hematocrit 20.1 % (35.3-44.9); Hemoglobin 6.5 g/dL (11.5-15.4); Immature Granulocytes % 4.3 % (0-4); Lymphocytes # 1.5 K/mcL (0.6-4.6); Lymphocytes % 11.3 %; Mean Corpuscular HGB Conc 32.3 g/dL (31.6-35.5); Mean Corpuscular Hemoglobin 28.8 pg (28.0-33.3); Mean Corpuscular Volume 88.9 fL (83.0-100.0); Mean Platelet Volume 12.2 fL (9.4-12.4); Monocytes # 1.2 K/mcL (0.0-1.3); Neutrophils # 9.3 K/mcL (1.6-8.9); Nucleated Red Blood Cells 0.5 /100 WBC (0); Platelet Count 162 K/mcL (140-400); Red Blood Count 2.26 M/mcL (3.82-4.97); Segmented Neutrophils % 71.3 %; White Blood Count 13.1 K/mcL (4.3-11.1)
[2020-10-28 06:22] LABS: Chol/HDL Ratio 5.5 (0-4.9)
[2020-10-28 06:23] LABS: Calcium 8.1 mg/dL (8.6-10.3); Magnesium 1.6 mg/dL (1.6-2.6); Phosphorous 2.8 mg/dL (2.7-4.5); Potassium 4.6 mEq/L (3.5-5.1)
[2020-10-28] MEDS ORDERED: 0.9 % Sodium Chloride 250 ML ONE (07:56)
[2020-10-28 08:12] LABS: Hematocrit 21.7 % (35.3-44.9); Hemoglobin 6.8 g/dL (11.5-15.4)
[2020-10-28] MEDS: Multivit/Ca/Min/Fe/FA 1 TAB TABLET PO SCH (08:31)
[2020-10-28] MEDS: Metoprolol 100 MG TABLET PO SCH ×3 (08:32→19:44)
[2020-10-28] MEDS: Lactobacillus 1 EACH CAP.SPRINK PO SCH ×2 (08:32→19:44)
[2020-10-28] MEDS: Magnesium Oxide 400 MG TABLET PO SCH (08:33)
[2020-10-28] MEDS: Ascorbic Acid 500 MG TABLET PO SCH ×2 (08:33→16:44)
[2020-10-28] MEDS: MOM Conc 10 ML UD.LIQ PO PRN ×2 (08:34→18:07)
[2020-10-28] MEDS: Chlorhexidine Rinse 15 ML MOUTHWASH MM SCH ×2 (08:34→19:44)
[2020-10-28] MEDS: Cyanocobalamin (B-12) 1,000 MCG TABLET PO SCH (08:35)
[2020-10-28] MEDS: Calcium Gluconate 1gm/50mL 1 GM/50 ML BAG IVPB SCH ×2 (11:33→12:33)
[2020-10-28] MEDS: Ondansetron 4 MG/2 ML VIAL IVP PRN (13:17)
[2020-10-28 13:20] LABS: Hematocrit 29.6 % (35.3-44.9)
[2020-10-28 13:35] LABS: Hemoglobin 9.7 g/dL (11.5-15.4)
[2020-10-28] MEDS: Mirtazapine 15 MG TABLET PO SCH (19:44)
[2020-10-28] MEDS: Gabapentin 300 MG CAPSULE PO SCH (19:44)
[2020-10-29] MEDS: Magnesium Oxide 400 MG TABLET PO SCH (08:19)
[2020-10-29] MEDS: Metoprolol 100 MG TABLET PO SCH ×3 (08:19→21:13)
[2020-10-29] MEDS: Chlorhexidine Rinse 15 ML MOUTHWASH MM SCH ×2 (08:19→21:12)
[2020-10-29] MEDS: Multivit/Ca/Min/Fe/FA 1 TAB TABLET PO SCH (08:20)
[2020-10-29] MEDS: Lactobacillus 1 EACH CAP.SPRINK PO SCH ×2 (08:20→21:12)
[2020-10-29] MEDS: Ascorbic Acid 500 MG TABLET PO SCH ×2 (08:20→16:11)
[2020-10-29] MEDS: Cyanocobalamin (B-12) 1,000 MCG TABLET PO SCH (08:20)
[2020-10-29 10:23] LABS: Hematocrit 28.2 % (35.3-44.9); Hemoglobin 9.3 g/dL (11.5-15.4); Mean Corpuscular Hemoglobin 28.8 pg (28.0-33.3); Mean Corpuscular Volume 87.3 fL (83.0-100.0); Mean Platelet Volume 11.3 fL (9.4-12.4); Nucleated Red Blood Cells 1.9 /100 WBC (0); Platelet Count 185 K/mcL (140-400); Red Blood Count 3.23 M/mcL (3.82-4.97); White Blood Count 14.4 K/mcL (4.3-11.1)
[2020-10-29 10:41] LABS: Calcium 8.9 mg/dL (8.6-10.3); Magnesium 1.8 mg/dL (1.6-2.6); Phosphorous 2.1 mg/dL (2.7-4.5); Potassium 4.5 mEq/L (3.5-5.1)
[2020-10-29 10:55] LABS: Lymphocytes # 2.9 K/mcL (0.6-4.6); Neutrophils # 9.5 K/mcL (1.6-8.9)
[2020-10-29 10:56] LABS: Platelet Estimate Normal (Normal)
[2020-10-29] MEDS ORDERED: Topiramate 25 MG TABLET PO SCH (13:30)
[2020-10-29] MEDS: Ondansetron 4 MG/2 ML VIAL IVP PRN (17:00)
[2020-10-29] MEDS: *HR* Promethazine 25 MG/ML VIAL IM PRN (18:20)
[2020-10-29] MEDS ORDERED: Melatonin 3 MG TABLET PO PRN (21:00)
[2020-10-29] MEDS: ALPRAZolam 0.25 MG TABLET PO PRN (21:13)
[2020-10-29] MEDS: Mirtazapine 15 MG TABLET PO SCH (21:13)
[2020-10-29] MEDS: Gabapentin 300 MG CAPSULE PO SCH (21:13)
[2020-10-29] MEDS: Doxycycline 100 MG CAPSULE PO SCH (21:13)
[2020-10-30 00:45] LABS: Hematocrit 25.4 % (35.3-44.9); Hemoglobin 8.2 g/dL (11.5-15.4); Mean Corpuscular HGB Conc 32.3 g/dL (31.6-35.5); Mean Corpuscular Volume 89.8 fL (83.0-100.0); Platelet Count 184 K/mcL (140-400); Red Blood Count 2.83 M/mcL (3.82-4.97); Red Cell Distribution Width 15.9 % (11.5-14.5); White Blood Count 13.3 K/mcL (4.3-11.1)
[2020-10-30 01:16] LABS: Calcium 8.5 mg/dL (8.6-10.3); Magnesium 1.6 mg/dL (1.6-2.6); Phosphorous 2.9 mg/dL (2.7-4.5); Potassium 4.3 mEq/L (3.5-5.1)
[2020-10-30] MEDS: Doxycycline 100 MG CAPSULE PO SCH ×2 (07:31→20:42)
[2020-10-30] MEDS: Metoprolol 100 MG TABLET PO SCH ×3 (07:31→20:42)
[2020-10-30] MEDS: Lactobacillus 1 EACH CAP.SPRINK PO SCH ×2 (07:31→20:42)
[2020-10-30] MEDS: Ascorbic Acid 500 MG TABLET PO SCH ×2 (07:32→15:51)
[2020-10-30] MEDS: Chlorhexidine Rinse 15 ML MOUTHWASH MM SCH ×2 (07:32→20:42)
[2020-10-30] MEDS: Multivit/Ca/Min/Fe/FA 1 TAB TABLET PO SCH (07:32)
[2020-10-30] MEDS: *HR* Promethazine 25 MG/ML VIAL IM PRN ×2 (08:03→15:50)
[2020-10-30] MEDS: Calcium Gluconate 1gm/50mL 1 GM/50 ML BAG IVPB SCH (10:12)
[2020-10-30] MEDS: ALPRAZolam 0.25 MG TABLET PO PRN (15:07)
[2020-10-30 15:30] LABS: Hemoglobin 8.8 g/dL (11.5-15.4)
[2020-10-30] MEDS: Ergocalciferol (VIT D2) 50,000 UNIT (1.25MG) CAP PO SCH (15:51)
[2020-10-30] MEDS: *HR* Rivaroxaban 10 MG TABLET PO SCH (15:51)
[2020-10-30] MEDS: Ondansetron 4 MG/2 ML VIAL IVP PRN (18:14)
[2020-10-30] MEDS: Mirtazapine 15 MG TABLET PO SCH (20:42)
[2020-10-30] MEDS: Gabapentin 300 MG CAPSULE PO SCH (20:43)
[2020-10-31 01:03] LABS: Hematocrit 25.1 % (35.3-44.9); Hemoglobin 8.3 g/dL (11.5-15.4); Mean Corpuscular HGB Conc 33.1 g/dL (31.6-35.5); Mean Corpuscular Volume 87.8 fL (83.0-100.0); Platelet Count 206 K/mcL (140-400); Red Blood Count 2.86 M/mcL (3.82-4.97); Red Cell Distribution Width 15.7 % (11.5-14.5); White Blood Count 14.2 K/mcL (4.3-11.1)
[2020-10-31 01:24] LABS: Calcium 8.6 mg/dL (8.6-10.3); Magnesium 1.7 mg/dL (1.6-2.6); Potassium 4.3 mEq/L (3.5-5.1)
[2020-10-31] MEDS: Doxycycline 100 MG CAPSULE PO SCH ×2 (08:32→20:35)
[2020-10-31] MEDS: Multivit/Ca/Min/Fe/FA 1 TAB TABLET PO SCH (08:33)
[2020-10-31] MEDS: Metoprolol 100 MG TABLET PO SCH ×3 (08:33→20:35)
[2020-10-31] MEDS: Lactobacillus 1 EACH CAP.SPRINK PO SCH ×2 (08:33→20:36)
[2020-10-31] MEDS: Ascorbic Acid 500 MG TABLET PO SCH ×2 (08:33→16:04)
[2020-10-31] MEDS: Chlorhexidine Rinse 15 ML MOUTHWASH MM SCH ×2 (08:34→20:35)
[2020-10-31] MEDS: *HR* Promethazine 25 MG/ML VIAL IM PRN (09:20)
[2020-10-31] MEDS: *HR* Rivaroxaban 10 MG TABLET PO SCH (16:04)
[2020-10-31] MEDS: Ondansetron 4 MG/2 ML VIAL IVP PRN (18:58)
[2020-10-31] MEDS: Mirtazapine 15 MG TABLET PO SCH (20:36)
[2020-10-31] MEDS: Gabapentin 300 MG CAPSULE PO SCH (20:36)
[2020-11-01] MEDS: Ondansetron 4 MG/2 ML VIAL IVP PRN ×2 (03:02→15:46)
[2020-11-01 05:12] LABS: Hematocrit 25.2 % (35.3-44.9); Hemoglobin 8.3 g/dL (11.5-15.4); Mean Corpuscular HGB Conc 32.9 g/dL (31.6-35.5); Mean Corpuscular Hemoglobin 29.3 pg (28.0-33.3); Mean Platelet Volume 11.4 fL (9.4-12.4); Platelet Count 219 K/mcL (140-400); Red Blood Count 2.83 M/mcL (3.82-4.97); Red Cell Distribution Width 15.6 % (11.5-14.5)
[2020-11-01 05:29] LABS: Calcium 8.1 mg/dL (8.6-10.3); Magnesium 1.7 mg/dL (1.6-2.6); Phosphorous 3.2 mg/dL (2.7-4.5); Potassium 4.2 mEq/L (3.5-5.1)
[2020-11-01] MEDS: Calcium Gluconate 1gm/50mL 1 GM/50 ML BAG IVPB SCH (07:31)
[2020-11-01] MEDS: Ascorbic Acid 500 MG TABLET PO SCH ×2 (08:44→15:46)
[2020-11-01] MEDS: Metoprolol 100 MG TABLET PO SCH ×2 (08:45→15:46)
[2020-11-01] MEDS: Lactobacillus 1 EACH CAP.SPRINK PO SCH (08:45)
[2020-11-01] MEDS: Doxycycline 100 MG CAPSULE PO SCH (08:45)
[2020-11-01] MEDS: Chlorhexidine Rinse 15 ML MOUTHWASH MM SCH (08:46)
[2020-11-01] MEDS: Multivit/Ca/Min/Fe/FA 1 TAB TABLET PO SCH (08:46)
[2020-11-01] MEDS: *HR* Promethazine 25 MG/ML VIAL IM PRN (08:57)
[2020-11-01] MEDS ORDERED: Famotidine 20 MG TABLET PO SCH (09:00)
[2020-11-01] MEDS ORDERED: 0.9 % Sodium Chloride 1,000 ML IVC SCH (12:30)
[2020-11-01] MEDS: *HR* Rivaroxaban 10 MG TABLET PO SCH (15:46)
[2020-11-01 17:16] VITALS: BP 163/82; PULSE 86; TEMP 99; O2SAT 93
[2020-11-01 18:28] LABS: Influenza A PCR Negative (Negative); Influenza B PCR Negative (Negative); Resp. Syncytial Virus PCR Negative (Negative)
[2020-11-01 18:52] LABS: SARS-CoV-2 by PCR (In House) Negative (Negative)
== END 2020-11-01 20:00 | disposition other institution (70) | DRG 469 ==
LOC: 3NENU 19:00 → EMEROOARM 19:00 → SUATTDRO 23:33 → OBSVTOIN 23:33 → 3NENU 10-22 00:30 → 2NNU 10-22 16:17 → 3NENU 10-24 18:18
PROVIDERS: ADMIT Internal Medicine; ATTEND Internal Medicine

== ENCOUNTER 2021-11-07 13:28 | Inpatient (IN) ==
[2021-11-07 15:51] LABS: Bacteria,Urine Many per hpf (None-Few); Bilirubin,Urine Negative (Negative); Blood,Urine Negative (Negative); Clarity,Urine Turbid (Clear); Color,Urine Yellow (Yellow); Glucose,Urine (UA) Normal (Normal); Ketones,Urine Negative (Negative); Leukocyte Esterase,Urine Large (Negative); Mucus,Urine Few per lpf (None-Few); Nitrite,Urine Negative (Negative); PH,Urine 5.5 pH Units (5.0-8.0); Protein,Urine Trace mg/dL (Neg-Trace); Specific Gravity,Urine 1.012 (1.010-1.025); Squamous Epithelial Cell,Urine Few per hpf (None-Few); Urobilinogen,Urine Normal (Normal); WBC,Urine TNTC per hpf (0-3)
[2021-11-07] MEDS ORDERED: cefTRIAXone 1,000 MG in 0.9 % Sodium Chloride 10 ML IVP ONE (19:48)
[2021-11-07 20:22] LABS: Basophils % 0.3 %; Eosinophils # 0.3 K/mcL (0.0-0.6); Hematocrit 38.5 % (35.3-44.9); Hemoglobin 12.2 g/dL (11.5-15.4); Immature Granulocytes % 0.3 % (0-4); Lymphocytes # 1.6 K/mcL (0.6-4.6); Lymphocytes % 13.8 %; Mean Corpuscular HGB Conc 31.7 g/dL (31.6-35.5); Mean Corpuscular Hemoglobin 30.6 pg (28.0-33.3); Mean Corpuscular Volume 96.5 fL (83.0-100.0); Mean Platelet Volume 11.3 fL (9.4-12.4); Monocytes # 0.8 K/mcL (0.0-1.3); Monocytes % 7.1 %; Neutrophils # 8.5 K/mcL (1.6-8.9); Platelet Count 183 K/mcL (140-400); Red Blood Count 3.99 M/mcL (3.82-4.97); Segmented Neutrophils % 75.5 %; White Blood Count 11.2 K/mcL (4.3-11.1)
[2021-11-07 20:44] LABS: BUN/Creatinine Ratio 18 (6-26); Blood Urea Nitrogen 75 mg/dL (8-23); Calcium 9.1 mg/dL (8.6-10.3); Carbon Dioxide 18 mEq/L (23-29); Chloride 104 mEq/L (98-107); Glucose 146 mg/dL (70-105); Osmolality,Calculated 307 (280-300); Potassium 4.2 mEq/L (3.5-5.1); Sodium 136 mEq/L (136-145); Troponin I < 0.03 ng/mL (< 0.04)
[2021-11-07] MEDS ORDERED: 0.9 % Sodium Chloride 1,000 ML IV ONE (22:50)
[2021-11-08] MEDS ORDERED: Naloxone 0.4 MG/ML INJ IVP PRN (00:06)
[2021-11-08] MEDS ORDERED: Melatonin 3 MG TABLET PO PRN (00:06)
[2021-11-08] MEDS ORDERED: Ringers Solution, Lactated 1,000 ML IVC SCH (00:15)
[2021-11-08] MEDS: Ringers Solution, Lactated 1,000 ML IVC SCH ×2 (02:08→13:27)
[2021-11-08 04:19] LABS: Calcium 8.1 mg/dL (8.6-10.3); Potassium 4.5 mEq/L (3.5-5.1)
[2021-11-08 04:25] LABS: Thyroid Stimulating Hormone 0.203 mcIU/mL (0.340-5.600)
[2021-11-08] MEDS ORDERED: Sodium Bicarbonate 150 MEQ in Water for inj. (sterile) 1,000 ML IVC SCH (05:25)
[2021-11-08] MEDS: *HR* Heparin 5,000 UNIT/ML VIAL SQ SCH ×3 (06:07→21:11)
[2021-11-08] MEDS: Piperacillin/Tazobactam 3.375 GM in 0.9 % Sodium Chloride Mini Bag 100 ML IVPB SCH ×2 (06:08→18:13)
[2021-11-08 06:34] LABS: Basophils % 0.2 %; Eosinophils # 0.4 K/mcL (0.0-0.6); Eosinophils % 3.4 %; Hemoglobin 11.1 g/dL (11.5-15.4); Immature Granulocytes % 0.4 % (0-4); Lymphocytes # 1.4 K/mcL (0.6-4.6); Lymphocytes % 12.9 %; Mean Corpuscular HGB Conc 31.7 g/dL (31.6-35.5); Mean Corpuscular Hemoglobin 30.2 pg (28.0-33.3); Mean Corpuscular Volume 95.4 fL (83.0-100.0); Mean Platelet Volume 11.7 fL (9.4-12.4); Monocytes # 0.9 K/mcL (0.0-1.3); Monocytes % 8.4 %; Platelet Count 160 K/mcL (140-400); Red Blood Count 3.67 M/mcL (3.82-4.97); Red Cell Distribution Width 12.9 % (11.5-14.5); Segmented Neutrophils % 74.7 %; White Blood Count 10.6 K/mcL (4.3-11.1)
[2021-11-08 08:15] LABS: VBG HCO3 18 mEq/L (21-27); VBG PCO2 32 mmHg (41-51); VBG PH 7.35 pH Units (7.32-7.42); VBG PO2 198 mmHg (25-50)
[2021-11-08] MEDS: cloNIDine HCL 0.1 MG TABLET PO SCH ×2 (11:21→21:10)
[2021-11-08] MEDS: Sodium Bicarbonate 150 MEQ in Water for inj. (sterile) 1,000 ML IVC SCH (13:12)
[2021-11-08] MEDS: polyethylene glycoL 3350 17 GM POWD.PACK PO SCH (13:35)
[2021-11-08] MEDS: ALPRAZolam 0.5 MG TABLET PO SCH (13:36)
[2021-11-08 14:58] LABS: Protein/Creatinine Ratio,Urine 0.68 mg/mg (0.00-0.20); Sodium, Urine 111.2 mEq/L
[2021-11-08] MEDS: amLODIPine 5 MG TABLET PO SCH (15:03)
[2021-11-08] MEDS: Metoprolol 100 MG TABLET PO SCH (21:09)
[2021-11-08] MEDS: Mirtazapine 15 MG TABLET PO SCH (21:10)
[2021-11-08] MEDS: Baclofen 10 MG TABLET PO SCH (21:10)
[2021-11-09] MEDS: *HR* HYDROcodone/Acet 5/325 mg TABLET PO PRN (01:44)
[2021-11-09] MEDS: Sodium Bicarbonate 150 MEQ in Water for inj. (sterile) 1,000 ML IVC SCH (05:06)
[2021-11-09] MEDS: Piperacillin/Tazobactam 3.375 GM in 0.9 % Sodium Chloride Mini Bag 100 ML IVPB SCH ×2 (05:10→17:11)
[2021-11-09] MEDS: *HR* Heparin 5,000 UNIT/ML VIAL SQ SCH ×3 (05:13→20:49)
[2021-11-09] MEDS: ALPRAZolam 0.5 MG TABLET PO SCH (08:42)
[2021-11-09] MEDS: Metoprolol 100 MG TABLET PO SCH ×2 (08:43→20:49)
[2021-11-09] MEDS: amLODIPine 5 MG TABLET PO SCH (08:43)
[2021-11-09] MEDS: cloNIDine HCL 0.1 MG TABLET PO SCH ×2 (08:43→20:48)
[2021-11-09] MEDS: Baclofen 10 MG TABLET PO SCH ×2 (08:43→20:48)
[2021-11-09] MEDS: polyethylene glycoL 3350 17 GM POWD.PACK PO SCH (08:52)
[2021-11-09 09:21] LABS: Basophils % 0.5 %; Eosinophils # 0.3 K/mcL (0.0-0.6); Eosinophils % 5.1 %; Hematocrit 30.6 % (35.3-44.9); Immature Granulocytes % 0.3 % (0-4); Lymphocytes # 1.3 K/mcL (0.6-4.6); Lymphocytes % 20.7 %; Mean Corpuscular HGB Conc 32.7 g/dL (31.6-35.5); Mean Corpuscular Hemoglobin 30.6 pg (28.0-33.3); Mean Corpuscular Volume 93.6 fL (83.0-100.0); Mean Platelet Volume 11.8 fL (9.4-12.4); Monocytes # 0.6 K/mcL (0.0-1.3); Monocytes % 9.1 %; Platelet Count 150 K/mcL (140-400); Red Blood Count 3.27 M/mcL (3.82-4.97); Red Cell Distribution Width 13.1 % (11.5-14.5); Segmented Neutrophils % 64.3 %; White Blood Count 6.3 K/mcL (4.3-11.1)
[2021-11-09 09:28] LABS: Calcium 7.9 mg/dL (8.6-10.3); Potassium 3.7 mEq/L (3.5-5.1)
[2021-11-09 19:24] LABS: Color,Synovial Fluid Straw (Straw)
[2021-11-09 19:25] LABS: Appearance,Synovial Fluid Hazy (Clear-Hazy)
[2021-11-09] MEDS: Mirtazapine 15 MG TABLET PO SCH (20:49)
[2021-11-10 03:51] LABS: Basophils % 0.5 %; Eosinophils # 0.5 K/mcL (0.0-0.6); Hematocrit 32.2 % (35.3-44.9); Hemoglobin 10.4 g/dL (11.5-15.4); Immature Granulocytes % 0.1 % (0-4); Lymphocytes # 1.1 K/mcL (0.6-4.6); Lymphocytes % 12.6 %; Mean Corpuscular HGB Conc 32.3 g/dL (31.6-35.5); Mean Corpuscular Hemoglobin 30.1 pg (28.0-33.3); Mean Corpuscular Volume 93.3 fL (83.0-100.0); Monocytes # 0.8 K/mcL (0.0-1.3); Monocytes % 8.8 %; Neutrophils # 6.1 K/mcL (1.6-8.9); Platelet Count 168 K/mcL (140-400); Red Blood Count 3.45 M/mcL (3.82-4.97); White Blood Count 8.5 K/mcL (4.3-11.1)
[2021-11-10 04:11] LABS: Albumin 3.4 g/dL (3.5-5.7); Bilirubin,Total 0.5 mg/dL (0.3-1.0); Calcium 8.2 mg/dL (8.6-10.3); Globulin 3.3 g/dL (2.4-3.5); Potassium 3.7 mEq/L (3.5-5.1); Total Protein 6.7 g/dL (6.4-8.9)
[2021-11-10] MEDS: *HR* Heparin 5,000 UNIT/ML VIAL SQ SCH ×2 (05:31→13:56)
[2021-11-10] MEDS: Piperacillin/Tazobactam 3.375 GM in 0.9 % Sodium Chloride Mini Bag 100 ML IVPB SCH ×2 (05:32→16:42)
[2021-11-10] MEDS: polyethylene glycoL 3350 17 GM POWD.PACK PO SCH (08:05)
[2021-11-10] MEDS: amLODIPine 5 MG TABLET PO SCH (08:17)
[2021-11-10] MEDS: Baclofen 10 MG TABLET PO SCH (08:17)
[2021-11-10] MEDS: Metoprolol 100 MG TABLET PO SCH (08:18)
[2021-11-10] MEDS: ALPRAZolam 0.5 MG TABLET PO SCH (09:44)
[2021-11-10] MEDS: cloNIDine HCL 0.1 MG TABLET PO SCH (16:42)
[2021-11-11] MEDS: Gabapentin 300 MG CAPSULE PO SCH ×2 (04:35→21:22)
[2021-11-11] MEDS: Metoprolol 100 MG TABLET PO SCH ×3 (04:35→21:22)
[2021-11-11] MEDS: Baclofen 10 MG TABLET PO SCH ×3 (04:35→21:22)
[2021-11-11] MEDS: Mirtazapine 15 MG TABLET PO SCH ×2 (04:36→21:22)
[2021-11-11] MEDS: *HR* Heparin 5,000 UNIT/ML VIAL SQ SCH ×4 (04:36→21:22)
[2021-11-11] MEDS: Piperacillin/Tazobactam 3.375 GM in 0.9 % Sodium Chloride Mini Bag 100 ML IVPB SCH ×2 (07:28→17:56)
[2021-11-11] MEDS: amLODIPine 5 MG TABLET PO SCH (08:27)
[2021-11-11] MEDS: polyethylene glycoL 3350 17 GM POWD.PACK PO SCH (08:51)
[2021-11-11 11:39] LABS: Basophils % 0.4 %; Eosinophils # 0.3 K/mcL (0.0-0.6); Hematocrit 29.4 % (35.3-44.9); Hemoglobin 9.5 g/dL (11.5-15.4); Immature Granulocytes % 0.9 % (0-4); Lymphocytes % 13.9 %; Mean Corpuscular HGB Conc 32.3 g/dL (31.6-35.5); Mean Corpuscular Volume 92.7 fL (83.0-100.0); Mean Platelet Volume 12.2 fL (9.4-12.4); Monocytes # 0.6 K/mcL (0.0-1.3); Monocytes % 9.1 %; Neutrophils # 4.9 K/mcL (1.6-8.9); Red Blood Count 3.17 M/mcL (3.82-4.97); Red Cell Distribution Width 13.1 % (11.5-14.5); Segmented Neutrophils % 71.7 %; White Blood Count 6.8 K/mcL (4.3-11.1)
[2021-11-11 11:45] LABS: Calcium 8.7 mg/dL (8.6-10.3); Potassium 3.5 mEq/L (3.5-5.1)
[2021-11-11 12:06] LABS: Platelet Count 85 K/mcL (140-400)
[2021-11-11 12:07] LABS: Platelet Estimate Decreased (Normal)
[2021-11-11] MEDS: cloNIDine HCL 0.1 MG TABLET PO SCH (17:56)
[2021-11-11] MEDS: 0.9 % Sodium Chloride 1,000 ML IVC SCH (21:29)
[2021-11-12] MEDS: *HR* Heparin 5,000 UNIT/ML VIAL SQ SCH ×3 (05:52→22:19)
[2021-11-12] MEDS: Piperacillin/Tazobactam 3.375 GM in 0.9 % Sodium Chloride Mini Bag 100 ML IVPB SCH ×2 (05:53→18:13)
[2021-11-12] MEDS: Metoprolol 100 MG TABLET PO SCH ×2 (07:55→22:19)
[2021-11-12] MEDS: amLODIPine 5 MG TABLET PO SCH (07:55)
[2021-11-12] MEDS: Baclofen 10 MG TABLET PO SCH ×2 (07:55→22:19)
[2021-11-12] MEDS: 0.9 % Sodium Chloride 1,000 ML IVC SCH ×2 (07:59→18:13)
[2021-11-12] MEDS: polyethylene glycoL 3350 17 GM POWD.PACK PO SCH (08:02)
[2021-11-12 11:56] LABS: Basophils # 0.1 K/mcL (0.0-0.2); Basophils % 0.7 %; Eosinophils # 0.7 K/mcL (0.0-0.6); Hematocrit 34.9 % (35.3-44.9); Hemoglobin 11.3 g/dL (11.5-15.4); Immature Granulocytes % 0.5 % (0-4); Lymphocytes # 1.1 K/mcL (0.6-4.6); Lymphocytes % 8.8 %; Mean Corpuscular HGB Conc 32.4 g/dL (31.6-35.5); Mean Corpuscular Hemoglobin 30.1 pg (28.0-33.3); Mean Corpuscular Volume 93.1 fL (83.0-100.0); Mean Platelet Volume 12.1 fL (9.4-12.4); Monocytes # 0.8 K/mcL (0.0-1.3); Monocytes % 6.8 %; Neutrophils # 9.2 K/mcL (1.6-8.9); Platelet Count 163 K/mcL (140-400); Red Blood Count 3.75 M/mcL (3.82-4.97); Red Cell Distribution Width 12.8 % (11.5-14.5); Segmented Neutrophils % 77.2 %; White Blood Count 11.9 K/mcL (4.3-11.1)
[2021-11-12 14:31] LABS: Calcium 7.9 mg/dL (8.6-10.3); Magnesium 1.3 mg/dL (1.6-2.6); Potassium 3.7 mEq/L (3.5-5.1)
[2021-11-12 17:17] LABS: Uric Acid 6.9 mg/dL (2.3-7.6)
[2021-11-12] MEDS: cloNIDine HCL 0.1 MG TABLET PO SCH (18:14)
[2021-11-12] MEDS: Mirtazapine 15 MG TABLET PO SCH (22:19)
[2021-11-12] MEDS: Gabapentin 300 MG CAPSULE PO SCH (22:19)
[2021-11-13] MEDS: 0.9 % Sodium Chloride 1,000 ML IVC SCH ×3 (04:19→16:00)
[2021-11-13 05:40] LABS: Basophils % 0.2 %; Eosinophils # 0.1 K/mcL (0.0-0.6); Eosinophils % 0.6 %; Hematocrit 32.1 % (35.3-44.9); Immature Granulocytes % 0.5 % (0-4); Lymphocytes # 1.4 K/mcL (0.6-4.6); Lymphocytes % 9.2 %; Mean Corpuscular HGB Conc 31.2 g/dL (31.6-35.5); Mean Corpuscular Hemoglobin 30.8 pg (28.0-33.3); Mean Corpuscular Volume 98.8 fL (83.0-100.0); Mean Platelet Volume 12.2 fL (9.4-12.4); Monocytes % 6.6 %; Neutrophils # 12.2 K/mcL (1.6-8.9); Platelet Count 143 K/mcL (140-400); Red Blood Count 3.25 M/mcL (3.82-4.97); Red Cell Distribution Width 13.1 % (11.5-14.5); Segmented Neutrophils % 82.9 %; White Blood Count 14.7 K/mcL (4.3-11.1)
[2021-11-13 06:00] LABS: Calcium 7.7 mg/dL (8.6-10.3)
[2021-11-13] MEDS: Piperacillin/Tazobactam 3.375 GM in 0.9 % Sodium Chloride Mini Bag 100 ML IVPB SCH ×2 (06:32→17:46)
[2021-11-13] MEDS: *HR* Heparin 5,000 UNIT/ML VIAL SQ SCH ×3 (06:32→21:43)
[2021-11-13] MEDS ORDERED: Potassium Effervescent 25 MEQ TABLET.EFF PO ONE (08:00)
[2021-11-13 08:28] LABS: Magnesium 1.2 mg/dL (1.6-2.6)
[2021-11-13] MEDS: polyethylene glycoL 3350 17 GM POWD.PACK PO SCH (10:20)
[2021-11-13] MEDS: amLODIPine 5 MG TABLET PO SCH (10:24)
[2021-11-13] MEDS: Baclofen 10 MG TABLET PO SCH ×2 (10:24→21:39)
[2021-11-13] MEDS: Metoprolol 100 MG TABLET PO SCH ×2 (10:26→21:39)
[2021-11-13] MEDS: cloNIDine HCL 0.1 MG TABLET PO SCH (17:46)
[2021-11-13] MEDS: Mirtazapine 15 MG TABLET PO SCH (21:39)
[2021-11-13] MEDS: Gabapentin 300 MG CAPSULE PO SCH (21:39)
[2021-11-13] MEDS: *HR* HYDROcodone/Acet 5/325 mg TABLET PO PRN (21:52)
[2021-11-14] MEDS: 0.9 % Sodium Chloride 1,000 ML IVC SCH ×3 (02:08→23:44)
[2021-11-14 03:39] LABS: Basophils % 0.3 %; Eosinophils # 0.6 K/mcL (0.0-0.6); Eosinophils % 5.6 %; Hematocrit 27.4 % (35.3-44.9); Hemoglobin 8.5 g/dL (11.5-15.4); Immature Granulocytes % 0.7 % (0-4); Lymphocytes # 1.7 K/mcL (0.6-4.6); Lymphocytes % 17.1 %; Mean Corpuscular Hemoglobin 30.6 pg (28.0-33.3); Mean Corpuscular Volume 98.6 fL (83.0-100.0); Mean Platelet Volume 11.8 fL (9.4-12.4); Monocytes # 0.8 K/mcL (0.0-1.3); Monocytes % 7.8 %; Neutrophils # 6.9 K/mcL (1.6-8.9); Platelet Count 122 K/mcL (140-400); Red Blood Count 2.78 M/mcL (3.82-4.97); Red Cell Distribution Width 13.2 % (11.5-14.5); Segmented Neutrophils % 68.5 %; White Blood Count 10.1 K/mcL (4.3-11.1)
[2021-11-14 03:58] LABS: Calcium 7.5 mg/dL (8.6-10.3); Potassium 3.2 mEq/L (3.5-5.1)
[2021-11-14] MEDS: Piperacillin/Tazobactam 3.375 GM in 0.9 % Sodium Chloride Mini Bag 100 ML IVPB SCH (05:26)
[2021-11-14] MEDS: *HR* Heparin 5,000 UNIT/ML VIAL SQ SCH ×3 (05:27→20:54)
[2021-11-14] MEDS ORDERED: *HR* Labetalol 20 MG/4 ML SYRINGE IVP ONE (05:55)
[2021-11-14] MEDS ORDERED: Potassium Effervescent 25 MEQ TABLET.EFF PO ONE (08:00)
[2021-11-14] MEDS: Baclofen 10 MG TABLET PO SCH ×2 (10:25→20:54)
[2021-11-14] MEDS: *HR* HYDROcodone/Acet 5/325 mg TABLET PO PRN (10:25)
[2021-11-14] MEDS: amLODIPine 5 MG TABLET PO SCH (10:26)
[2021-11-14] MEDS: Metoprolol 100 MG TABLET PO SCH ×2 (10:26→20:55)
[2021-11-14] MEDS ORDERED: calcitrioL 0.25 MCG CAPSULE PO SCH (13:30)
[2021-11-14] MEDS: Magnesium Oxide 400 MG TABLET PO SCH ×2 (13:50→20:54)
[2021-11-14] MEDS: calcitrioL 0.25 MCG CAPSULE PO SCH (13:50)
[2021-11-14] MEDS: cloNIDine HCL 0.1 MG TABLET PO SCH (16:48)
[2021-11-14] MEDS: Acetaminophen 325 MG TABLET PO PRN (20:54)
[2021-11-14] MEDS: Gabapentin 300 MG CAPSULE PO SCH (20:55)
[2021-11-14] MEDS: Mirtazapine 15 MG TABLET PO SCH (20:55)
[2021-11-15] MEDS ORDERED: Loratadine 10 MG TABLET PO ONE (02:45)
[2021-11-15] MEDS: *HR* Heparin 5,000 UNIT/ML VIAL SQ SCH ×3 (05:12→21:24)
[2021-11-15 06:04] LABS: Basophils # 0.1 K/mcL (0.0-0.2); Basophils % 0.6 %; Eosinophils # 0.7 K/mcL (0.0-0.6); Hematocrit 33.6 % (35.3-44.9); Immature Granulocytes % 1.1 % (0-4); Lymphocytes # 2.2 K/mcL (0.6-4.6); Lymphocytes % 12.4 %; Mean Corpuscular Hemoglobin 30.2 pg (28.0-33.3); Mean Corpuscular Volume 97.7 fL (83.0-100.0); Mean Platelet Volume 12.4 fL (9.4-12.4); Monocytes # 1.3 K/mcL (0.0-1.3); Monocytes % 7.1 %; Nucleated Red Blood Cells 0.1 /100 WBC (0); Platelet Count 186 K/mcL (140-400); Red Blood Count 3.44 M/mcL (3.82-4.97); Red Cell Distribution Width 13.1 % (11.5-14.5); Segmented Neutrophils % 74.8 %
[2021-11-15 06:07] LABS: Hemoglobin 10.4 g/dL (11.5-15.4); Neutrophils # 13.5 K/mcL (1.6-8.9)
[2021-11-15 06:29] LABS: Calcium 8.6 mg/dL (8.6-10.3); Potassium 3.7 mEq/L (3.5-5.1)
[2021-11-15] MEDS: Magnesium Oxide 400 MG TABLET PO SCH ×2 (09:48→21:25)
[2021-11-15] MEDS: Metoprolol 100 MG TABLET PO SCH ×2 (09:48→21:24)
[2021-11-15] MEDS: Baclofen 10 MG TABLET PO SCH ×2 (09:49→21:24)
[2021-11-15] MEDS: amLODIPine 5 MG TABLET PO SCH (09:49)
[2021-11-15] MEDS: calcitrioL 0.25 MCG CAPSULE PO SCH (09:49)
[2021-11-15 12:47] LABS: Magnesium 1.5 mg/dL (1.6-2.6); Troponin I 0.03 ng/mL (< 0.04)
[2021-11-15] MEDS ORDERED: Furosemide 40 MG/4 ML VIAL IVP ONE (15:36)
[2021-11-15 16:34] LABS: Adenovirus Not Detected (Not Detect); Bordetella Pertussis Not Detected (Not Detect); Chlamydophila pneumoniae Not Detected (Not Detect); Coronavirus 229E Not Detected (Not Detect); Coronavirus HKU1 Not Detected (Not Detect); Coronavirus NL63 Not Detected (Not Detect); Coronavirus OC43 Not Detected (Not Detect); Human Metapneumovirus Not Detected (Not Detect); Human Rhinovirus/Enterovirus Not Detected (Not Detect); Influenza A Subtype 2009 H1 Not Detected (Not Detect); Influenza B Not Detected (Not Detect); Mycoplasma pneumoniae Not Detected (Not Detect); Parainfluenza Virus 1 Not Detected (Not Detect); Parainfluenza Virus 2 Not Detected (Not Detect); Parainfluenza Virus 3 Not Detected (Not Detect); Parainfluenza Virus 4 Not Detected (Not Detect); Respiratory Syncytial Virus Not Detected (Not Detect); SARS-CoV-2 Not Detected (Not Detect)
[2021-11-15] MEDS: cloNIDine HCL 0.1 MG TABLET PO SCH (18:18)
[2021-11-15] MEDS: *HR* HYDROcodone/Acet 5/325 mg TABLET PO PRN (18:18)
[2021-11-15] MEDS: Gabapentin 300 MG CAPSULE PO SCH (21:24)
[2021-11-15] MEDS: Mirtazapine 15 MG TABLET PO SCH (21:25)
[2021-11-16] MEDS: *HR* Heparin 5,000 UNIT/ML VIAL SQ SCH ×3 (05:54→20:32)
[2021-11-16 06:42] LABS: Basophils # 0.1 K/mcL (0.0-0.2); Basophils % 0.4 %; Eosinophils # 0.6 K/mcL (0.0-0.6); Eosinophils % 3.5 %; Hematocrit 30.3 % (35.3-44.9); Hemoglobin 9.6 g/dL (11.5-15.4); Immature Granulocytes % 1.1 % (0-4); Lymphocytes # 1.6 K/mcL (0.6-4.6); Lymphocytes % 10.1 %; Mean Corpuscular HGB Conc 31.7 g/dL (31.6-35.5); Mean Corpuscular Hemoglobin 30.1 pg (28.0-33.3); Mean Platelet Volume 12.3 fL (9.4-12.4); Monocytes # 1.4 K/mcL (0.0-1.3); Monocytes % 8.8 %; Neutrophils # 12.3 K/mcL (1.6-8.9); Nucleated Red Blood Cells 0.2 /100 WBC (0); Platelet Count 190 K/mcL (140-400); Red Blood Count 3.19 M/mcL (3.82-4.97); Segmented Neutrophils % 76.1 %; White Blood Count 16.2 K/mcL (4.3-11.1)
[2021-11-16] MEDS: 0.9 % Sodium Chloride 1,000 ML IVC SCH (08:04)
[2021-11-16 08:10] LABS: Calcium 8.8 mg/dL (8.6-10.3); Potassium 3.5 mEq/L (3.5-5.1)
[2021-11-16 08:37] LABS: Magnesium 1.5 mg/dL (1.6-2.6); Phosphorous 3.9 mg/dL (2.7-4.5)
[2021-11-16] MEDS ORDERED: Furosemide 40 MG/4 ML VIAL IVP ONE (10:03)
[2021-11-16] MEDS: Magnesium Oxide 400 MG TABLET PO SCH ×2 (10:20→20:15)
[2021-11-16] MEDS: amLODIPine 5 MG TABLET PO SCH (10:20)
[2021-11-16] MEDS: Baclofen 10 MG TABLET PO SCH ×2 (10:20→20:15)
[2021-11-16] MEDS: Metoprolol 100 MG TABLET PO SCH ×3 (10:20→20:32)
[2021-11-16] MEDS: calcitrioL 0.25 MCG CAPSULE PO SCH (10:20)
[2021-11-16] MEDS: *HR* HYDROcodone/Acet 5/325 mg TABLET PO PRN (10:20)
[2021-11-16] MEDS ORDERED: *HR* Metoprolol 5 MG/5 ML VIAL IVP ONE (11:23)
[2021-11-16] MEDS: DilTIAZem CD (24hr) 120 MG CAP.ER.24H PO SCH (14:11)
[2021-11-16] MEDS: cloNIDine HCL 0.1 MG TABLET PO SCH (17:40)
[2021-11-16] MEDS: Mirtazapine 15 MG TABLET PO SCH (20:15)
[2021-11-16] MEDS: Gabapentin 300 MG CAPSULE PO SCH (20:16)
[2021-11-17] MEDS: *HR* Heparin 5,000 UNIT/ML VIAL SQ SCH ×3 (06:07→20:25)
[2021-11-17 06:23] LABS: Basophils # 0.1 K/mcL (0.0-0.2); Basophils % 0.3 %; Eosinophils # 0.6 K/mcL (0.0-0.6); Eosinophils % 4.2 %; Hematocrit 25.7 % (35.3-44.9); Hemoglobin 8.2 g/dL (11.5-15.4); Immature Granulocytes % 1.2 % (0-4); Lymphocytes # 1.6 K/mcL (0.6-4.6); Mean Corpuscular HGB Conc 31.9 g/dL (31.6-35.5); Mean Corpuscular Hemoglobin 30.5 pg (28.0-33.3); Mean Corpuscular Volume 95.5 fL (83.0-100.0); Mean Platelet Volume 12.4 fL (9.4-12.4); Monocytes # 1.2 K/mcL (0.0-1.3); Monocytes % 7.7 %; Neutrophils # 11.3 K/mcL (1.6-8.9); Nucleated Red Blood Cells 0.2 /100 WBC (0); Platelet Count 189 K/mcL (140-400); Red Blood Count 2.69 M/mcL (3.82-4.97); Red Cell Distribution Width 13.2 % (11.5-14.5); Segmented Neutrophils % 75.6 %
[2021-11-17 06:42] LABS: Calcium 8.7 mg/dL (8.6-10.3); Phosphorous 3.7 mg/dL (2.7-4.5); Potassium 3.6 mEq/L (3.5-5.1)
[2021-11-17] MEDS ORDERED: Furosemide 40 MG/4 ML VIAL IVP ONE (09:12)
[2021-11-17] MEDS ORDERED: Furosemide 20 MG/2 ML VIAL IVP SCH (09:15)
[2021-11-17] MEDS: Metoprolol 100 MG TABLET PO SCH ×3 (10:04→20:24)
[2021-11-17] MEDS: Magnesium Oxide 400 MG TABLET PO SCH ×2 (10:04→20:24)
[2021-11-17] MEDS: calcitrioL 0.25 MCG CAPSULE PO SCH (10:04)
[2021-11-17] MEDS: Baclofen 10 MG TABLET PO SCH ×2 (10:04→20:24)
[2021-11-17] MEDS: Acetaminophen 325 MG TABLET PO PRN (15:45)
[2021-11-17] MEDS: Albumin 25% 25gram/100mL 25 GM/100 ML IV.SOLN IVPB SCH ×2 (15:45→23:59)
[2021-11-17] MEDS: cloNIDine HCL 0.1 MG TABLET PO SCH (18:23)
[2021-11-17] MEDS: Furosemide 20 MG/2 ML VIAL IVP SCH (18:23)
[2021-11-17] MEDS: Cefepime HCl 2,000 MG in 0.9 % Sodium Chloride 20 ML IVP SCH (18:24)
[2021-11-17] MEDS: DilTIAZem CD (24hr) 120 MG CAP.ER.24H PO SCH (20:24)
[2021-11-17] MEDS: Mirtazapine 15 MG TABLET PO SCH (20:24)
[2021-11-17] MEDS: Gabapentin 300 MG CAPSULE PO SCH (20:24)
[2021-11-18] MEDS: *HR* Heparin 5,000 UNIT/ML VIAL SQ SCH ×3 (06:13→21:58)
[2021-11-18] MEDS: Cefepime HCl 2,000 MG in 0.9 % Sodium Chloride 20 ML IVP SCH ×2 (06:13→18:25)
[2021-11-18] MEDS: Albumin 25% 25gram/100mL 25 GM/100 ML IV.SOLN IVPB SCH ×2 (08:46→15:19)
[2021-11-18] MEDS: Furosemide 20 MG/2 ML VIAL IVP SCH ×2 (08:46→18:25)
[2021-11-18] MEDS: calcitrioL 0.25 MCG CAPSULE PO SCH (08:47)
[2021-11-18] MEDS: DilTIAZem CD (24hr) 120 MG CAP.ER.24H PO SCH ×3 (08:47→21:59)
[2021-11-18] MEDS: Metoprolol 100 MG TABLET PO SCH ×3 (08:47→21:59)
[2021-11-18] MEDS: Baclofen 10 MG TABLET PO SCH ×2 (08:47→21:58)
[2021-11-18] MEDS: Magnesium Oxide 400 MG TABLET PO SCH ×2 (08:47→21:59)
[2021-11-18 11:51] LABS: Calcium 9.4 mg/dL (8.6-10.3); Magnesium 1.9 mg/dL (1.6-2.6); Phosphorous 4.7 mg/dL (2.7-4.5); Potassium 3.8 mEq/L (3.5-5.1)
[2021-11-18 11:52] LABS: Basophils % 0.2 %; Eosinophils # 0.4 K/mcL (0.0-0.6); Eosinophils % 2.5 %; Hematocrit 25.2 % (35.3-44.9); Immature Granulocytes % 1.2 % (0-4); Lymphocytes # 0.7 K/mcL (0.6-4.6); Lymphocytes % 4.7 %; Mean Corpuscular HGB Conc 31.7 g/dL (31.6-35.5); Mean Corpuscular Hemoglobin 30.2 pg (28.0-33.3); Mean Corpuscular Volume 95.1 fL (83.0-100.0); Mean Platelet Volume 12.1 fL (9.4-12.4); Monocytes # 0.9 K/mcL (0.0-1.3); Monocytes % 5.8 %; Neutrophils # 13.2 K/mcL (1.6-8.9); Platelet Count 214 K/mcL (140-400); Red Blood Count 2.65 M/mcL (3.82-4.97); Red Cell Distribution Width 13.1 % (11.5-14.5); Segmented Neutrophils % 85.6 %; White Blood Count 15.5 K/mcL (4.3-11.1)
[2021-11-18] MEDS: Albuterol 2.5 MG/3 ML NEBULIZER IH SCH ×2 (18:17→22:41)
[2021-11-18] MEDS: cloNIDine HCL 0.1 MG TABLET PO SCH (18:25)
[2021-11-18] MEDS: Mirtazapine 15 MG TABLET PO SCH (21:59)
[2021-11-18] MEDS: Gabapentin 300 MG CAPSULE PO SCH (22:00)
[2021-11-18] MEDS: Levalbuterol Neb 1.25 MG/3 ML IH SCH (23:29)
[2021-11-19] MEDS: Albumin 25% 25gram/100mL 25 GM/100 ML IV.SOLN IVPB SCH ×3 (00:53→15:35)
[2021-11-19] MEDS: Levalbuterol Neb 1.25 MG/3 ML IH SCH ×4 (04:14→21:31)
[2021-11-19] MEDS: *HR* Heparin 5,000 UNIT/ML VIAL SQ SCH ×3 (06:36→19:53)
[2021-11-19] MEDS ORDERED: Cefepime HCl 2,000 MG in 0.9 % Sodium Chloride Mini Bag 100 ML IVP SCH (07:00)
[2021-11-19 08:20] LABS: Hematocrit 25.7 % (35.3-44.9); Mean Corpuscular HGB Conc 31.1 g/dL (31.6-35.5); Mean Corpuscular Hemoglobin 29.6 pg (28.0-33.3); Mean Corpuscular Volume 95.2 fL (83.0-100.0); Mean Platelet Volume 12.9 fL (9.4-12.4); Platelet Count 199 K/mcL (140-400); Red Cell Distribution Width 13.2 % (11.5-14.5)
[2021-11-19 08:39] LABS: Albumin 4.3 g/dL (3.5-5.7); Calcium 9.5 mg/dL (8.6-10.3); Phosphorous 5.2 mg/dL (2.7-4.5); Potassium 3.6 mEq/L (3.5-5.1)
[2021-11-19] MEDS: calcitrioL 0.25 MCG CAPSULE PO SCH (09:34)
[2021-11-19] MEDS: Baclofen 10 MG TABLET PO SCH ×2 (09:34→19:54)
[2021-11-19] MEDS: Furosemide 20 MG/2 ML VIAL IVP SCH (09:34)
[2021-11-19] MEDS: Magnesium Oxide 400 MG TABLET PO SCH ×2 (09:34→19:53)
[2021-11-19] MEDS: DilTIAZem CD (24hr) 120 MG CAP.ER.24H PO SCH ×2 (09:34→22:36)
[2021-11-19] MEDS: Metoprolol 100 MG TABLET PO SCH ×3 (09:34→22:36)
[2021-11-19] MEDS ORDERED: Furosemide 40 MG/4 ML VIAL IVP ONE (14:55)
[2021-11-19] MEDS ORDERED: Chlorothiazide Sodium 500 MG VIAL IVP ONE (15:39)
[2021-11-19] MEDS: Meropenem 500 MG in 0.9 % Sodium Chloride Mini Bag 100 ML IVPB SCH (16:16)
[2021-11-19] MEDS: cloNIDine HCL 0.1 MG TABLET PO SCH (17:35)
[2021-11-19] MEDS: Gabapentin 300 MG CAPSULE PO SCH (19:53)
[2021-11-19] MEDS: Mirtazapine 15 MG TABLET PO SCH (19:54)
[2021-11-20] MEDS: Albumin 25% 25gram/100mL 25 GM/100 ML IV.SOLN IVPB SCH ×3 (00:41→15:30)
[2021-11-20] MEDS: Levalbuterol Neb 1.25 MG/3 ML IH SCH ×4 (04:30→21:11)
[2021-11-20] MEDS: *HR* Heparin 5,000 UNIT/ML VIAL SQ SCH ×3 (05:26→21:14)
[2021-11-20] MEDS: Meropenem 500 MG in 0.9 % Sodium Chloride Mini Bag 100 ML IVPB SCH (05:27)
[2021-11-20 06:53] LABS: Hematocrit 24.7 % (35.3-44.9); Hemoglobin 7.7 g/dL (11.5-15.4); Mean Corpuscular HGB Conc 31.2 g/dL (31.6-35.5); Mean Corpuscular Hemoglobin 29.8 pg (28.0-33.3); Mean Corpuscular Volume 95.7 fL (83.0-100.0); Platelet Count 223 K/mcL (140-400); Red Blood Count 2.58 M/mcL (3.82-4.97); Red Cell Distribution Width 13.6 % (11.5-14.5); White Blood Count 15.5 K/mcL (4.3-11.1)
[2021-11-20 07:15] LABS: Albumin 4.1 g/dL (3.5-5.7); Calcium 9.4 mg/dL (8.6-10.3); Phosphorous 5.1 mg/dL (2.7-4.5); Potassium 3.4 mEq/L (3.5-5.1)
[2021-11-20] MEDS ORDERED: Furosemide 20 MG/2 ML VIAL IVP SCH (09:00)
[2021-11-20] MEDS: calcitrioL 0.25 MCG CAPSULE PO SCH (09:48)
[2021-11-20] MEDS: Metoprolol 100 MG TABLET PO SCH (09:48)
[2021-11-20] MEDS: DilTIAZem CD (24hr) 120 MG CAP.ER.24H PO SCH (09:48)
[2021-11-20] MEDS: Magnesium Oxide 400 MG TABLET PO SCH (09:48)
[2021-11-20] MEDS: Baclofen 10 MG TABLET PO SCH (09:48)
[2021-11-20 09:55] LABS: ABG Base Excess 0 mEq/L (-2 to 3); ABG HCO3 24 mEq/L (21-27); ABG Oxygen Saturation 93 % (95-98); ABG PCO2 38 mmHg (35-45); ABG PH 7.41 pH Units (7.32-7.45); ABG PO2 66 mmHg (85-104); ABG TCO2 25 mEq/L (20-26)
[2021-11-20] MEDS: Furosemide 240 MG in 0.9 % Sodium Chloride 96 ML IVC SCH (09:58)
[2021-11-20] MEDS ORDERED: Acetaminophen IV 500 MG/50 ML BAG IVPB ONE (14:02)
[2021-11-20] MEDS ORDERED: *HR* Metoprolol 5 MG/5 ML VIAL IVP PRN (14:02)
[2021-11-20] MEDS ORDERED: DilTIAZem 50 MG/50 ML IV.SOLN IVC SCH (14:15)
[2021-11-20] MEDS: Piperacillin/Tazobactam 3.375 GM in 0.9 % Sodium Chloride Mini Bag 100 ML IVPB SCH (17:12)
[2021-11-20 20:01] LABS: Magnesium 2.5 mg/dL (1.6-2.6)
[2021-11-20 20:04] LABS: Calcium 9.3 mg/dL (8.6-10.3); Magnesium 2.9 mg/dL (1.6-2.6); Potassium 3.3 mEq/L (3.5-5.1)
[2021-11-21 03:48] LABS: Basophils % 0.2 %; Eosinophils # 0.4 K/mcL (0.0-0.6); Eosinophils % 1.9 %; Hematocrit 21.9 % (35.3-44.9); Hemoglobin 6.9 g/dL (11.5-15.4); Immature Granulocytes % 1.3 % (0-4); Lymphocytes # 0.8 K/mcL (0.6-4.6); Lymphocytes % 4.2 %; Mean Corpuscular HGB Conc 31.5 g/dL (31.6-35.5); Mean Corpuscular Hemoglobin 30.3 pg (28.0-33.3); Mean Corpuscular Volume 96.1 fL (83.0-100.0); Mean Platelet Volume 12.9 fL (9.4-12.4); Monocytes # 0.7 K/mcL (0.0-1.3); Monocytes % 3.5 %; Neutrophils # 17.4 K/mcL (1.6-8.9); Nucleated Red Blood Cells 0.2 /100 WBC (0); Platelet Count 244 K/mcL (140-400); Red Blood Count 2.28 M/mcL (3.82-4.97); Red Cell Distribution Width 13.8 % (11.5-14.5); Segmented Neutrophils % 88.9 %; White Blood Count 19.6 K/mcL (4.3-11.1)
[2021-11-21] MEDS: Levalbuterol Neb 1.25 MG/3 ML IH SCH ×4 (03:53→22:20)
[2021-11-21 04:05] LABS: VBG Ionized Calcium 1.17 mmol/L (1.15-1.35)
[2021-11-21 04:11] LABS: Albumin 3.7 g/dL (3.5-5.7); Albumin/Globulin Ratio 1.2 (1.1-2.2); Bilirubin,Total 0.5 mg/dL (0.3-1.0); Calcium 9.3 mg/dL (8.6-10.3); Globulin 3.2 g/dL (2.4-3.5); Magnesium 3.1 mg/dL (1.6-2.6); Phosphorous 6.4 mg/dL (2.7-4.5); Potassium 4.1 mEq/L (3.5-5.1); Total Protein 6.9 g/dL (6.4-8.9)
[2021-11-21] MEDS ORDERED: 0.9 % Sodium Chloride 250 ML ONE (05:02)
[2021-11-21] MEDS: *HR* Heparin 5,000 UNIT/ML VIAL SQ SCH ×3 (05:06→20:21)
[2021-11-21] MEDS: Piperacillin/Tazobactam 3.375 GM in 0.9 % Sodium Chloride Mini Bag 100 ML IVPB SCH ×2 (05:06→17:24)
[2021-11-21] MEDS: Furosemide 240 MG in 0.9 % Sodium Chloride 96 ML IVC SCH (06:18)
[2021-11-21 08:34] LABS: Troponin I 0.07 ng/mL (< 0.04)
[2021-11-21] MEDS ORDERED: Heparin 1,000 UNITS/500 mL 500 ML ONE (10:07)
[2021-11-21] MEDS ORDERED: *HR* Heparin 5,000 UNIT/ML VIAL ONE ×2 (10:07→20:20)
[2021-11-21] MEDS ORDERED: *HR* Heparin 10,000 UNIT/10 ML VIAL IV PRN (11:36)
[2021-11-21] MEDS ORDERED: 0.9 % Sodium Chloride 250 ML IVC PRN (11:36)
[2021-11-21] MEDS ORDERED: 0.9 % Sodium Chloride 2,000 ML PRIME SCH (11:45)
[2021-11-21 16:25] LABS: Hepatitis B Surface Antibody < 3.10 mIU/mL
[2021-11-21 16:35] LABS: Hepatitis B Surface Antigen Nonreactive (Nonreactive)
[2021-11-21] MEDS: carvediloL 6.25 MG TABLET PO SCH (17:21)
[2021-11-21] MEDS ORDERED: *HR* Metoprolol 5 MG/5 ML VIAL IVP ONE (18:54)
[2021-11-22] MEDS: Levalbuterol Neb 1.25 MG/3 ML IH SCH ×4 (03:58→21:20)
[2021-11-22 05:21] LABS: Hematocrit 27.2 % (35.3-44.9); Mean Corpuscular HGB Conc 32.4 g/dL (31.6-35.5); Mean Corpuscular Hemoglobin 30.3 pg (28.0-33.3); Mean Corpuscular Volume 93.8 fL (83.0-100.0); Mean Platelet Volume 12.9 fL (9.4-12.4); Platelet Count 284 K/mcL (140-400); Red Cell Distribution Width 14.3 % (11.5-14.5); White Blood Count 14.5 K/mcL (4.3-11.1)
[2021-11-22 05:21] LABS: VBG Ionized Calcium 1.16 mmol/L (1.15-1.35)
[2021-11-22 05:22] LABS: Hemoglobin 8.8 g/dL (11.5-15.4)
[2021-11-22 05:41] LABS: Albumin 3.9 g/dL (3.5-5.7); Albumin/Globulin Ratio 1.1 (1.1-2.2); Bilirubin,Total 0.6 mg/dL (0.3-1.0); Calcium 9.4 mg/dL (8.6-10.3); Globulin 3.7 g/dL (2.4-3.5); Magnesium 2.7 mg/dL (1.6-2.6); Phosphorous 5.1 mg/dL (2.7-4.5); Potassium 4.3 mEq/L (3.5-5.1); Total Protein 7.6 g/dL (6.4-8.9)
[2021-11-22] MEDS: Piperacillin/Tazobactam 3.375 GM in 0.9 % Sodium Chloride Mini Bag 100 ML IVPB SCH ×2 (05:57→17:04)
[2021-11-22] MEDS: *HR* Heparin 5,000 UNIT/ML VIAL SQ SCH ×3 (05:58→21:18)
[2021-11-22] MEDS ORDERED: DilTIAZem 50 MG in 0.9 % Sodium Chloride 40 ML IVC SCH (07:15)
[2021-11-22] MEDS: carvediloL 6.25 MG TABLET PO SCH (07:33)
[2021-11-22] MEDS ORDERED: 0.9 % Sodium Chloride 250 ML IVC PRN (08:18)
[2021-11-22] MEDS ORDERED: *HR* Heparin 10,000 UNIT/10 ML VIAL IV PRN (08:18)
[2021-11-22] MEDS: DilTIAZem 50 MG in 0.9 % Sodium Chloride 40 ML IVC PRN ×3 (13:12→20:40)
[2021-11-22] MEDS ORDERED: *HR* Metoprolol 5 MG/5 ML VIAL IVP ONE (13:44)
[2021-11-23] MEDS: DilTIAZem 50 MG in 0.9 % Sodium Chloride 40 ML IVC PRN ×2 (00:22→04:10)
[2021-11-23] MEDS: Levalbuterol Neb 1.25 MG/3 ML IH SCH ×4 (03:25→20:42)
[2021-11-23 03:50] LABS: VBG Ionized Calcium 1.19 mmol/L (1.15-1.35)
[2021-11-23 04:00] LABS: Basophils # 0.1 K/mcL (0.0-0.2); Basophils % 0.6 %; Eosinophils # 0.8 K/mcL (0.0-0.6); Eosinophils % 5.1 %; Hematocrit 28.7 % (35.3-44.9); Hemoglobin 9.1 g/dL (11.5-15.4); Lymphocytes % 6.5 %; Mean Corpuscular HGB Conc 31.7 g/dL (31.6-35.5); Mean Corpuscular Hemoglobin 30.2 pg (28.0-33.3); Mean Corpuscular Volume 95.3 fL (83.0-100.0); Mean Platelet Volume 12.9 fL (9.4-12.4); Monocytes # 0.9 K/mcL (0.0-1.3); Monocytes % 5.5 %; Neutrophils # 12.8 K/mcL (1.6-8.9); Nucleated Red Blood Cells 0.1 /100 WBC (0); Platelet Count 285 K/mcL (140-400); Red Blood Count 3.01 M/mcL (3.82-4.97); Red Cell Distribution Width 13.9 % (11.5-14.5); Segmented Neutrophils % 80.3 %; White Blood Count 15.9 K/mcL (4.3-11.1)
[2021-11-23 04:23] LABS: Albumin 3.7 g/dL (3.5-5.7); Calcium 9.7 mg/dL (8.6-10.3); Magnesium 2.7 mg/dL (1.6-2.6); Phosphorous 5.5 mg/dL (2.7-4.5); Potassium 4.5 mEq/L (3.5-5.1)
[2021-11-23] MEDS: Piperacillin/Tazobactam 3.375 GM in 0.9 % Sodium Chloride Mini Bag 100 ML IVPB SCH ×2 (05:11→17:06)
[2021-11-23] MEDS: *HR* Heparin 5,000 UNIT/ML VIAL SQ SCH ×2 (05:11→14:37)
[2021-11-23 09:41] LABS: Troponin I 0.07 ng/mL (< 0.04)
[2021-11-23] MEDS ORDERED: E-Z-HD (BARIUM SULF) SUSPENSION PO ONE (16:31)
[2021-11-23] MEDS ORDERED: E-Z-PAQUE (BARIUM SULF) SUSP 1 BOTTLE PO ONE (16:31)
[2021-11-23] MEDS ORDERED: *HR* Heparin 10,000 UNIT/10 ML VIAL IV PRN (18:31)
[2021-11-23] MEDS: Gabapentin 300 MG CAPSULE PO SCH (22:53)
[2021-11-24 04:18] LABS: Basophils # 0.1 K/mcL (0.0-0.2); Basophils % 0.7 %; Eosinophils # 0.7 K/mcL (0.0-0.6); Eosinophils % 4.4 %; Hematocrit 29.3 % (35.3-44.9); Hemoglobin 9.1 g/dL (11.5-15.4); Immature Granulocytes % 2.5 % (0-4); Lymphocytes % 6.1 %; Mean Corpuscular HGB Conc 31.1 g/dL (31.6-35.5); Mean Corpuscular Hemoglobin 29.7 pg (28.0-33.3); Mean Corpuscular Volume 95.8 fL (83.0-100.0); Mean Platelet Volume 12.1 fL (9.4-12.4); Monocytes % 5.7 %; Neutrophils # 13.5 K/mcL (1.6-8.9); Platelet Count 315 K/mcL (140-400); Red Blood Count 3.06 M/mcL (3.82-4.97); Segmented Neutrophils % 80.6 %; White Blood Count 16.8 K/mcL (4.3-11.1)
[2021-11-24 04:36] LABS: Calcium 9.5 mg/dL (8.6-10.3); Potassium 5.4 mEq/L (3.5-5.1)
[2021-11-24] MEDS: Levalbuterol Neb 1.25 MG/3 ML IH SCH ×4 (04:44→22:41)
[2021-11-24] MEDS: Piperacillin/Tazobactam 3.375 GM in 0.9 % Sodium Chloride Mini Bag 100 ML IVPB SCH ×2 (06:44→18:21)
[2021-11-24] MEDS ORDERED: 0.9 % Sodium Chloride 250 ML IVC PRN (08:15)
[2021-11-24] MEDS ORDERED: *HR* Heparin 10,000 UNIT/10 ML VIAL IV PRN (08:15)
[2021-11-24] MEDS: calcitrioL 0.25 MCG CAPSULE PO SCH (08:33)
[2021-11-24] MEDS: DilTIAZem CD (24hr) 120 MG CAP.ER.24H PO SCH (21:00)
[2021-11-24] MEDS: Gabapentin 300 MG CAPSULE PO SCH (22:11)
[2021-11-25] MEDS: Levalbuterol Neb 1.25 MG/3 ML IH SCH ×4 (04:00→21:19)
[2021-11-25] MEDS: Piperacillin/Tazobactam 3.375 GM in 0.9 % Sodium Chloride Mini Bag 100 ML IVPB SCH ×2 (05:20→18:39)
[2021-11-25] MEDS: Acetaminophen 325 MG TABLET PO PRN (05:24)
[2021-11-25 06:11] LABS: Albumin 3.4 g/dL (3.5-5.7); Phosphorous 5.1 mg/dL (2.7-4.5)
[2021-11-25] MEDS ORDERED: Pantoprazole 40 MG VIAL IVP ONE (08:10)
[2021-11-25] MEDS: calcitrioL 0.25 MCG CAPSULE PO SCH (08:13)
[2021-11-25] MEDS: DilTIAZem CD (24hr) 120 MG CAP.ER.24H PO SCH ×2 (08:14→20:35)
[2021-11-25] MEDS: Gabapentin 300 MG CAPSULE PO SCH (20:36)
[2021-11-26] MEDS: Levalbuterol Neb 1.25 MG/3 ML IH SCH ×4 (04:14→23:04)
[2021-11-26] MEDS: Piperacillin/Tazobactam 3.375 GM in 0.9 % Sodium Chloride Mini Bag 100 ML IVPB SCH ×2 (05:30→17:44)
[2021-11-26] MEDS: DilTIAZem CD (24hr) 120 MG CAP.ER.24H PO SCH ×2 (09:17→20:50)
[2021-11-26] MEDS: calcitrioL 0.25 MCG CAPSULE PO SCH (09:17)
[2021-11-26 12:21] LABS: Basophils # 0.1 K/mcL (0.0-0.2); Basophils % 0.6 %; Hematocrit 28.8 % (35.3-44.9); Immature Granulocytes % 2.4 % (0-4); Lymphocytes % 7.4 %; Mean Corpuscular HGB Conc 31.3 g/dL (31.6-35.5); Mean Platelet Volume 12.5 fL (9.4-12.4); Monocytes % 7.1 %; Neutrophils # 10.6 K/mcL (1.6-8.9); Platelet Count 240 K/mcL (140-400); Red Cell Distribution Width 13.7 % (11.5-14.5); Segmented Neutrophils % 75.5 %; White Blood Count 14.1 K/mcL (4.3-11.1)
[2021-11-26 12:32] LABS: Calcium 8.8 mg/dL (8.6-10.3); Potassium 4.4 mEq/L (3.5-5.1)
[2021-11-26] MEDS: Gabapentin 300 MG CAPSULE PO SCH (20:50)
[2021-11-27] MEDS: Levalbuterol Neb 1.25 MG/3 ML IH SCH ×4 (03:21→22:14)
[2021-11-27] MEDS: Piperacillin/Tazobactam 3.375 GM in 0.9 % Sodium Chloride Mini Bag 100 ML IVPB SCH ×2 (05:47→17:06)
[2021-11-27 06:10] LABS: Hematocrit 28.9 % (35.3-44.9); Mean Corpuscular HGB Conc 31.1 g/dL (31.6-35.5); Mean Corpuscular Hemoglobin 30.4 pg (28.0-33.3); Mean Corpuscular Volume 97.6 fL (83.0-100.0); Mean Platelet Volume 12.2 fL (9.4-12.4); Platelet Count 223 K/mcL (140-400); Red Blood Count 2.96 M/mcL (3.82-4.97); Red Cell Distribution Width 13.7 % (11.5-14.5); White Blood Count 12.9 K/mcL (4.3-11.1)
[2021-11-27] MEDS ORDERED: *HR* Heparin 10,000 UNIT/10 ML VIAL IV PRN (08:06)
[2021-11-27] MEDS ORDERED: 0.9 % Sodium Chloride 250 ML IVC PRN (08:06)
[2021-11-27] MEDS ORDERED: 0.9 % Sodium Chloride 2,000 ML PRIME SCH (08:15)
[2021-11-27] MEDS: DilTIAZem CD (24hr) 120 MG CAP.ER.24H PO SCH ×3 (09:10→21:50)
[2021-11-27] MEDS: calcitrioL 0.25 MCG CAPSULE PO SCH (09:10)
[2021-11-27 11:07] LABS: Potassium 4.9 mEq/L (3.5-5.1)
[2021-11-27] MEDS: Gabapentin 300 MG CAPSULE PO SCH (20:03)
[2021-11-28] MEDS: Levalbuterol Neb 1.25 MG/3 ML IH SCH ×4 (04:43→21:37)
[2021-11-28] MEDS: Piperacillin/Tazobactam 3.375 GM in 0.9 % Sodium Chloride Mini Bag 100 ML IVPB SCH ×2 (05:31→18:27)
[2021-11-28 05:55] LABS: Hematocrit 29.8 % (35.3-44.9); Hemoglobin 9.1 g/dL (11.5-15.4); Mean Corpuscular HGB Conc 30.5 g/dL (31.6-35.5); Mean Corpuscular Hemoglobin 29.7 pg (28.0-33.3); Mean Corpuscular Volume 97.4 fL (83.0-100.0); Platelet Count 221 K/mcL (140-400); Red Blood Count 3.06 M/mcL (3.82-4.97); Red Cell Distribution Width 13.5 % (11.5-14.5)
[2021-11-28] MEDS: calcitrioL 0.25 MCG CAPSULE PO SCH (10:01)
[2021-11-28 11:06] LABS: Calcium 8.8 mg/dL (8.6-10.3); Potassium 3.7 mEq/L (3.5-5.1)
[2021-11-28] MEDS: Acetaminophen 325 MG TABLET PO PRN ×2 (11:40→18:26)
[2021-11-28] MEDS: DilTIAZem CD (24hr) 120 MG CAP.ER.24H PO SCH (22:49)
[2021-11-28] MEDS: Gabapentin 300 MG CAPSULE PO SCH (22:49)
[2021-11-29] MEDS: Levalbuterol Neb 1.25 MG/3 ML IH SCH ×4 (04:29→22:19)
[2021-11-29 04:36] LABS: Calcium 8.9 mg/dL (8.6-10.3); Potassium 3.9 mEq/L (3.5-5.1)
[2021-11-29] MEDS: Piperacillin/Tazobactam 3.375 GM in 0.9 % Sodium Chloride Mini Bag 100 ML IVPB SCH ×2 (05:25→18:46)
[2021-11-29] MEDS ORDERED: 0.9 % Sodium Chloride 250 ML IVC PRN (08:11)
[2021-11-29] MEDS ORDERED: *HR* Heparin 10,000 UNIT/10 ML VIAL IV PRN (08:11)
[2021-11-29] MEDS: DilTIAZem CD (24hr) 120 MG CAP.ER.24H PO SCH ×2 (12:37→22:50)
[2021-11-29] MEDS: calcitrioL 0.25 MCG CAPSULE PO SCH (12:37)
[2021-11-29] MEDS: Acetaminophen 325 MG TABLET PO PRN ×2 (16:16→23:03)
[2021-11-29] MEDS: Gabapentin 300 MG CAPSULE PO SCH (22:51)
[2021-11-30] MEDS ORDERED: Prochlorperazine 10 MG/2 ML VIAL IVP ONE (03:21)
[2021-11-30] MEDS: Levalbuterol Neb 1.25 MG/3 ML IH SCH ×4 (03:54→22:32)
[2021-11-30 04:19] LABS: Hematocrit 31.3 % (35.3-44.9); Mean Corpuscular HGB Conc 31.9 g/dL (31.6-35.5); Mean Corpuscular Hemoglobin 29.9 pg (28.0-33.3); Mean Corpuscular Volume 93.4 fL (83.0-100.0); Mean Platelet Volume 12.5 fL (9.4-12.4); Platelet Count 267 K/mcL (140-400); Red Blood Count 3.35 M/mcL (3.82-4.97); Red Cell Distribution Width 13.5 % (11.5-14.5); White Blood Count 12.9 K/mcL (4.3-11.1)
[2021-11-30 04:31] LABS: Albumin 3.6 g/dL (3.5-5.7); Calcium 9.6 mg/dL (8.6-10.3); Phosphorous 4.6 mg/dL (2.7-4.5); Potassium 3.5 mEq/L (3.5-5.1)
[2021-11-30] MEDS: Piperacillin/Tazobactam 3.375 GM in 0.9 % Sodium Chloride Mini Bag 100 ML IVPB SCH (05:37)
[2021-11-30] MEDS: calcitrioL 0.25 MCG CAPSULE PO SCH (08:12)
[2021-11-30] MEDS: DilTIAZem CD (24hr) 120 MG CAP.ER.24H PO SCH ×2 (08:12→22:11)
[2021-11-30] MEDS: Gabapentin 300 MG CAPSULE PO SCH (22:12)
[2021-12-01] MEDS: Levalbuterol Neb 1.25 MG/3 ML IH SCH ×4 (03:50→22:42)
[2021-12-01 05:57] LABS: Hematocrit 29.6 % (35.3-44.9); Hemoglobin 9.3 g/dL (11.5-15.4); Mean Corpuscular HGB Conc 31.4 g/dL (31.6-35.5); Mean Corpuscular Hemoglobin 30.4 pg (28.0-33.3); Mean Corpuscular Volume 96.7 fL (83.0-100.0); Mean Platelet Volume 11.8 fL (9.4-12.4); Platelet Count 246 K/mcL (140-400); Red Blood Count 3.06 M/mcL (3.82-4.97); Red Cell Distribution Width 13.5 % (11.5-14.5); White Blood Count 12.2 K/mcL (4.3-11.1)
[2021-12-01 06:17] LABS: Albumin 3.6 g/dL (3.5-5.7); Calcium 9.4 mg/dL (8.6-10.3); Phosphorous 6.6 mg/dL (2.7-4.5); Potassium 3.7 mEq/L (3.5-5.1)
[2021-12-01] MEDS: calcitrioL 0.25 MCG CAPSULE PO SCH (08:54)
[2021-12-01] MEDS: DilTIAZem CD (24hr) 120 MG CAP.ER.24H PO SCH ×2 (08:54→20:50)
[2021-12-01] MEDS ORDERED: Ibuprofen 200 MG TABLET PO PRN (11:52)
[2021-12-01] MEDS ORDERED: Ibuprofen 400 MG TABLET PO PRN (12:15)
[2021-12-01] MEDS: Mag Hydrox/Al Hydrox/Simeth 30 ML UDC PO SCH ×3 (13:07→23:57)
[2021-12-01] MEDS ORDERED: Levalbuterol Neb 1.25 MG/3 ML IH ONE (17:45)
[2021-12-01] MEDS ORDERED: Levalbuterol Neb 1.25 MG/3 ML ONE (17:45)
[2021-12-01] MEDS: Gabapentin 300 MG CAPSULE PO SCH (20:50)
[2021-12-02] MEDS: Levalbuterol Neb 1.25 MG/3 ML IH SCH ×4 (03:59→22:35)
[2021-12-02] MEDS: Mag Hydrox/Al Hydrox/Simeth 30 ML UDC PO SCH ×3 (05:28→16:16)
[2021-12-02 05:42] LABS: Hematocrit 30.2 % (35.3-44.9); Hemoglobin 9.7 g/dL (11.5-15.4); Mean Corpuscular HGB Conc 32.1 g/dL (31.6-35.5); Mean Corpuscular Hemoglobin 30.1 pg (28.0-33.3); Mean Corpuscular Volume 93.8 fL (83.0-100.0); Mean Platelet Volume 11.7 fL (9.4-12.4); Platelet Count 267 K/mcL (140-400); Red Blood Count 3.22 M/mcL (3.82-4.97); Red Cell Distribution Width 13.5 % (11.5-14.5); White Blood Count 13.3 K/mcL (4.3-11.1)
[2021-12-02 06:01] LABS: Albumin 3.6 g/dL (3.5-5.7); Calcium 9.5 mg/dL (8.6-10.3); Potassium 3.8 mEq/L (3.5-5.1)
[2021-12-02] MEDS ORDERED: 0.9 % Sodium Chloride 250 ML IVC PRN (08:25)
[2021-12-02] MEDS ORDERED: *HR* Heparin 10,000 UNIT/10 ML VIAL IV PRN ×2 (08:25)
[2021-12-02] MEDS: calcitrioL 0.25 MCG CAPSULE PO SCH (08:28)
[2021-12-02] MEDS: *HR* HYDROcodone/Acet 5/325 mg TABLET PO PRN ×2 (08:28→16:16)
[2021-12-02] MEDS: DilTIAZem CD (24hr) 120 MG CAP.ER.24H PO SCH ×2 (08:29→20:18)
[2021-12-02] MEDS: Gabapentin 300 MG CAPSULE PO SCH (20:17)
[2021-12-02] MEDS: QUEtiapine Fumarate 25 MG TABLET PO SCH ×2 (20:18→23:09)
[2021-12-03] MEDS: Mag Hydrox/Al Hydrox/Simeth 30 ML UDC PO SCH ×4 (00:56→17:06)
[2021-12-03] MEDS: Levalbuterol Neb 1.25 MG/3 ML IH SCH (04:10)
[2021-12-03 05:34] LABS: Hematocrit 29.8 % (35.3-44.9); Hemoglobin 9.3 g/dL (11.5-15.4); Mean Corpuscular HGB Conc 31.2 g/dL (31.6-35.5); Mean Corpuscular Hemoglobin 29.4 pg (28.0-33.3); Mean Corpuscular Volume 94.3 fL (83.0-100.0); Platelet Count 251 K/mcL (140-400); Red Blood Count 3.16 M/mcL (3.82-4.97); Red Cell Distribution Width 13.5 % (11.5-14.5)
[2021-12-03 05:57] LABS: Albumin 3.7 g/dL (3.5-5.7); Calcium 9.7 mg/dL (8.6-10.3); Phosphorous 4.1 mg/dL (2.7-4.5)
[2021-12-03] MEDS ORDERED: Levalbuterol Neb 1.25 MG/3 ML IH PRN (08:44)
[2021-12-03] MEDS: DilTIAZem CD (24hr) 120 MG CAP.ER.24H PO SCH ×2 (08:58→21:30)
[2021-12-03] MEDS: calcitrioL 0.25 MCG CAPSULE PO SCH (08:58)
[2021-12-03] MEDS: *HR* HYDROcodone/Acet 5/325 mg TABLET PO PRN (17:42)
[2021-12-03] MEDS: Gabapentin 300 MG CAPSULE PO SCH (21:20)
[2021-12-03] MEDS: QUEtiapine Fumarate 25 MG TABLET PO SCH (21:20)
[2021-12-04] MEDS: Mag Hydrox/Al Hydrox/Simeth 30 ML UDC PO SCH ×4 (03:39→17:43)
[2021-12-04 04:52] LABS: Hematocrit 27.5 % (35.3-44.9); Hemoglobin 8.6 g/dL (11.5-15.4); Mean Corpuscular HGB Conc 31.3 g/dL (31.6-35.5); Mean Corpuscular Hemoglobin 30.1 pg (28.0-33.3); Mean Corpuscular Volume 96.2 fL (83.0-100.0); Mean Platelet Volume 12.3 fL (9.4-12.4); Platelet Count 228 K/mcL (140-400); Red Blood Count 2.86 M/mcL (3.82-4.97); Red Cell Distribution Width 13.8 % (11.5-14.5); White Blood Count 11.3 K/mcL (4.3-11.1)
[2021-12-04 05:12] LABS: Albumin 3.5 g/dL (3.5-5.7); Calcium 9.5 mg/dL (8.6-10.3); Phosphorous 3.8 mg/dL (2.7-4.5); Potassium 4.2 mEq/L (3.5-5.1)
[2021-12-04] MEDS ORDERED: Lidocaine 1% 20 ML MDV ONE (08:31)
[2021-12-04] MEDS ORDERED: Heparin 1,000 UNITS/500 mL 500 ML ONE (08:31)
[2021-12-04] MEDS ORDERED: *HR* Heparin 5,000 UNIT/ML VIAL ONE (08:59)
[2021-12-04] MEDS: ceFAZolin 1,000 MG in 0.9 % Sodium Chloride Mini Bag 100 ML IVPB SCH (10:01)
[2021-12-04] MEDS: calcitrioL 0.25 MCG CAPSULE PO SCH (10:17)
[2021-12-04] MEDS: DilTIAZem CD (24hr) 120 MG CAP.ER.24H PO SCH ×2 (10:19→20:40)
[2021-12-04] MEDS: *HR* HYDROcodone/Acet 5/325 mg TABLET PO PRN (12:56)
[2021-12-04] MEDS: QUEtiapine Fumarate 25 MG TABLET PO SCH (20:40)
[2021-12-04] MEDS: Gabapentin 300 MG CAPSULE PO SCH (20:40)
[2021-12-05] MEDS: Mag Hydrox/Al Hydrox/Simeth 30 ML UDC PO SCH ×5 (00:37→17:16)
[2021-12-05] MEDS: *HR* HYDROcodone/Acet 5/325 mg TABLET PO PRN ×3 (00:40→16:21)
[2021-12-05] MEDS ORDERED: 0.9 % Sodium Chloride 250 ML IVC PRN (07:43)
[2021-12-05] MEDS ORDERED: *HR* Heparin 10,000 UNIT/10 ML VIAL IV PRN (07:43)
[2021-12-05] MEDS: calcitrioL 0.25 MCG CAPSULE PO SCH (07:50)
[2021-12-05] MEDS: DilTIAZem CD (24hr) 120 MG CAP.ER.24H PO SCH ×2 (07:51→21:29)
[2021-12-05] MEDS: *HR* Heparin 10,000 UNIT/10 ML VIAL IV PRN ×2 (09:00→12:31)
[2021-12-05 10:05] LABS: Hematocrit 29.5 % (35.3-44.9); Hemoglobin 9.2 g/dL (11.5-15.4); Mean Corpuscular HGB Conc 31.2 g/dL (31.6-35.5); Mean Corpuscular Hemoglobin 29.4 pg (28.0-33.3); Mean Corpuscular Volume 94.2 fL (83.0-100.0); Platelet Count 237 K/mcL (140-400); Red Blood Count 3.13 M/mcL (3.82-4.97); Red Cell Distribution Width 13.7 % (11.5-14.5); White Blood Count 12.2 K/mcL (4.3-11.1)
[2021-12-05 10:26] LABS: Calcium 9.1 mg/dL (8.6-10.3); Potassium 3.8 mEq/L (3.5-5.1)
[2021-12-05] MEDS: Gabapentin 300 MG CAPSULE PO SCH (21:30)
[2021-12-05] MEDS: Mirtazapine 15 MG TABLET PO SCH (21:30)
[2021-12-06] MEDS: Mag Hydrox/Al Hydrox/Simeth 30 ML UDC PO SCH ×4 (00:17→17:33)
[2021-12-06] MEDS: calcitrioL 0.25 MCG CAPSULE PO SCH (09:09)
[2021-12-06] MEDS: DilTIAZem CD (24hr) 120 MG CAP.ER.24H PO SCH ×2 (09:09→21:57)
[2021-12-06] MEDS: *HR* HYDROcodone/Acet 5/325 mg TABLET PO PRN (11:27)
[2021-12-06] MEDS: Gabapentin 300 MG CAPSULE PO SCH (21:56)
[2021-12-06] MEDS: Mirtazapine 15 MG TABLET PO SCH (21:57)
[2021-12-07] MEDS: Mag Hydrox/Al Hydrox/Simeth 30 ML UDC PO SCH ×5 (00:39→23:39)
[2021-12-07 07:00] LABS: Basophils # 0.1 K/mcL (0.0-0.2); Basophils % 0.3 %; Eosinophils # 0.2 K/mcL (0.0-0.6); Eosinophils % 0.7 %; Hematocrit 31.2 % (35.3-44.9); Hemoglobin 9.7 g/dL (11.5-15.4); Immature Granulocytes % 0.5 % (0-4); Lymphocytes # 1.2 K/mcL (0.6-4.6); Lymphocytes % 5.2 %; Mean Corpuscular HGB Conc 31.1 g/dL (31.6-35.5); Mean Corpuscular Hemoglobin 29.8 pg (28.0-33.3); Mean Corpuscular Volume 95.7 fL (83.0-100.0); Mean Platelet Volume 12.6 fL (9.4-12.4); Monocytes # 1.2 K/mcL (0.0-1.3); Monocytes % 5.1 %; Platelet Count 222 K/mcL (140-400); Red Blood Count 3.26 M/mcL (3.82-4.97); Red Cell Distribution Width 13.4 % (11.5-14.5); Segmented Neutrophils % 88.2 %
[2021-12-07 07:13] LABS: Neutrophils # 19.9 K/mcL (1.6-8.9); White Blood Count 22.6 K/mcL (4.3-11.1)
[2021-12-07 07:52] LABS: Calcium 9.7 mg/dL (8.6-10.3); Potassium 4.4 mEq/L (3.5-5.1)
[2021-12-07] MEDS: DilTIAZem CD (24hr) 120 MG CAP.ER.24H PO SCH ×2 (08:23→20:45)
[2021-12-07] MEDS ORDERED: 0.9 % Sodium Chloride 250 ML IVC PRN (08:45)
[2021-12-07] MEDS ORDERED: Acetaminophen 325 MG TABLET PO PRN (08:54)
[2021-12-07] MEDS: calcitrioL 0.25 MCG CAPSULE PO SCH (09:22)
[2021-12-07] MEDS: *HR* HYDROcodone/Acet 5/325 mg TABLET PO PRN ×2 (17:30→23:37)
[2021-12-07] MEDS: Gabapentin 300 MG CAPSULE PO SCH (20:44)
[2021-12-07] MEDS: Mirtazapine 15 MG TABLET PO SCH (20:44)
[2021-12-07] MEDS: *HR* Heparin 5,000 UNIT/ML VIAL SQ SCH (22:39)
[2021-12-08 02:38] LABS: Basophils # 0.1 K/mcL (0.0-0.2); Basophils % 0.3 %; Eosinophils # 0.5 K/mcL (0.0-0.6); Eosinophils % 2.9 %; Hematocrit 29.8 % (35.3-44.9); Hemoglobin 9.5 g/dL (11.5-15.4); Immature Granulocytes % 0.5 % (0-4); Lymphocytes # 1.5 K/mcL (0.6-4.6); Lymphocytes % 9.7 %; Mean Corpuscular HGB Conc 31.9 g/dL (31.6-35.5); Mean Corpuscular Hemoglobin 30.3 pg (28.0-33.3); Mean Corpuscular Volume 94.9 fL (83.0-100.0); Mean Platelet Volume 12.2 fL (9.4-12.4); Monocytes # 1.1 K/mcL (0.0-1.3); Monocytes % 6.8 %; Neutrophils # 12.4 K/mcL (1.6-8.9); Platelet Count 212 K/mcL (140-400); Red Blood Count 3.14 M/mcL (3.82-4.97); Red Cell Distribution Width 13.5 % (11.5-14.5); Segmented Neutrophils % 79.8 %; White Blood Count 15.5 K/mcL (4.3-11.1)
[2021-12-08 02:57] LABS: Calcium 9.5 mg/dL (8.6-10.3); Potassium 3.7 mEq/L (3.5-5.1)
[2021-12-08] MEDS: *HR* Heparin 5,000 UNIT/ML VIAL SQ SCH ×2 (06:43→12:29)
[2021-12-08] MEDS: Mag Hydrox/Al Hydrox/Simeth 30 ML UDC PO SCH ×3 (06:44→18:16)
[2021-12-08] MEDS: *HR* HYDROcodone/Acet 5/325 mg TABLET PO PRN ×2 (09:19→18:16)
[2021-12-08] MEDS: DilTIAZem CD (24hr) 120 MG CAP.ER.24H PO SCH (09:19)
[2021-12-08] MEDS: calcitrioL 0.25 MCG CAPSULE PO SCH (09:20)
[2021-12-08 11:01] VITALS: PULSE 78; O2SAT 100
[2021-12-08] MEDS ORDERED: *HR* Heparin 10,000 UNIT/10 ML VIAL IV PRN (11:16)
[2021-12-08] MEDS ORDERED: 0.9 % Sodium Chloride 250 ML IVC PRN (11:16)
[2021-12-08 18:23] VITALS: BP 151/84; TEMP 97.2
== END 2021-12-08 19:17 | disposition home health service (06) | DRG 689 ==
LOC: EMEROOARM 13:28 → 3ANU 13:28 → SUATTDRO 11-08 00:05 → 3ANU 11-08 01:21 → SUATTDRO 11-08 16:20 → ICNU 11-20 12:41 → 2ANU 11-23 17:22
PROVIDERS: ADMIT Internal Medicine; ATTEND Internal Medicine
PROC: IRDRAIN (2021-11-09 12:00)
PROC: IRPERMA (2021-12-04 10:00)